=== PATIENT | female | born 1995 | race Caucasian/White ===

== ENCOUNTER 2017-09-25 17:29 | Emergency (ER) | payer OTHER ==
[2017-09-25 18:24] LABS: Urine Blood NEGATIVE (NEG); Urine Glucose NEGATIVE (NEG); Urine Protein NEGATIVE (NEG); Urine Specific Gravity >1.030 (1.005-1.030)
[2017-09-25 19:10] LABS: Absolute Lymphocytes (CBC) 2.8 K/uL (0.7-4.9); Absolute Monocytes 0.9 K/uL (0.1-1.3); Absolute Neutrophil 6.8 K/uL (1.8-8.0); Basophils % 0.6 % (0-1.3); Eosinophils % 1.1 % (0-4.4); Hematocrit 38.2 % (36.0-45.0); Lymphocytes % 26.3 % (15.3-44.8); MCH 30.6 pg (27.0-35.0); MCV 92.8 fL (80-100); MPV 8.2 fL (7.6-11.3); Monocytes % 8.3 % (3.3-12.3); RBC Red Blood Cell Count 4.11 M/uL (3.86-4.86)
[2017-09-25 19:16] LABS: Bicarbonate 26 mEq/L (21-31); Glucose Level 91 mg/dL (65-120); Lipase 24 U/L (22-51); Potassium 3.8 mEq/L (3.6-5.0); Sodium Level 136 mEq/L (135-145)
--- NOTE | 2017-09-25 19:16 | RAD REPORT ---
EXAM DESCRIPTION: US - Transvaginal Study Probe - 09/25/2017 7:05 pm CLINICAL HISTORY: Pelvic pain. COMPARISON: None. FINDINGS: The uterus is normal in size, shape and echotexture. The uterus measures 5.6 x 4.0 x 3.3 c m. The endometrial stripe measures 6 mm, normal. Both ovaries are normal in size, shape and echotexture. The right ovary measures 2.9 x 2.2 x 1 7 cm. The left ovary measures 4.3 x 3.8 x 2 cm. 3.2 x 2.8 cm left ovarian cyst. No adnexal masses. Normal Doppler blood flow was demonstrated to both ovaries. IMPRESSION: 3.2 cm left ovarian cyst, otherwise unremarkable study.
[2017-09-25 19:22] LABS: ALT/SGPT 12 IU/L (10-60); AST/SGOT 16 IU/L (10-42); Alkaline Phosphatase 46 IU/L (42-121); BUN Blood Urea Nitrogen 9 mg/dL (6-20); Bilirubin Direct < 0.1 mg/dL (0-0.2); Bilirubin Total 0.3 mg/dL (0.3-1.2)
[2017-09-25 21:02] LABS: Urine Bacteria <20 /HPF (<20); Urine Culture Reflex Order NOT NEEDED; Urine RBC <5 /HPF (NONE SEEN); Urine Yeast PRESENT (NONE SEEN)
[2017-09-25 21:03] LABS: Urine Mucus 1+ /HPF (NONE SEEN)
[2017-09-25] MEDS ORDERED: DICYCLOMINE HCL 10 MG CAP ONE (21:38)
--- NOTE | 2017-09-25 21:39 | ER ---
Nurse's Notes [facility] Name: Leena Austin Age: 22 yrs Sex: Female : 1995 Arrival Date: 09/25/2017 Time: 17:32 Bed 15 Private MD: Sanjiv Parker Diagnosis: Unspecified ovarian cysts-left;Candidiasis of vulva and vagina;Diarrhea, unspecified;Unspecified abdominal pain Presentation: 09/25 17:42 Presenting complaint: Patient states: " Last week I was dx w/ bacterial vaginosis and a ph yeast infection. I've been taking meds for that and I have been having really bad diarrhea and stomach pain. " Pt reports diarrhea x 3-4 days, lower abdominal pain and nausea, denies fever. Transition of care: patient was not received from another setting of care. Onset of symptoms was September 25, 2017. Risk Assessment: Do you want to hurt yourself or someone else? Patient reports no desire to harm self or others. Initial Sepsis Screen: Does the patient meet any 2 criteria? No. Patient's initial sepsis screen is negative. Does the patient have a suspected source of infection? No. Patient's initial sepsis screen is negative. Care prior to arrival: None. 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 - Social history:: Smoking status: Patient uses tobacco products, smokes one pack cigarettes per day. - Ebola Screening: : No symptoms or risks identified at this time. Screenin:51 Abuse screen: Denies threats or abuse. Denies injuries from another. Nutritional aj screening: No deficits noted. Tuberculosis screening: No symptoms or risk factors identified. Fall Risk None identified. Assessment: 18:51 General: Appears in no apparent distress. comfortable, Behavior is calm, cooperative, aj appropriate for age. Pain: Complains of pain in anus. Neuro: Level of Consciousness is awake, alert, obeys commands, Oriented to person, place, time, situation. Respiratory: Airway is patent Trachea midline Respiratory effort is even, unlabored, Respiratory pattern is regular, symmetrical. GI: Abdomen is flat, non-distended, Reports diarrhea, Rectal pain. Derm: Skin is intact, is healthy with good turgor, Skin is pink, warm \\T\\ dry. normal. 19:17 Reassessment: No changes from previously documented assessment. Patient and/or family cr4 updated on plan of care and expected duration. Pain level reassessed. Patient is alert, oriented x 3, equal unlabored respirations, skin warm/dry/pink. 19:30 GI: Bowel sounds present X 4 quads. Abd is soft and non tender X 4 quads. Reports cr4 diarrhea, Patient currently denies nausea, vomiting. 20:00 Reassessment: No changes from previously documented assessment. Patient and/or family cr4 updated on plan of care and expected duration. Pain level reassessed. Patient is alert, oriented x 3, equal unlabored respirations, skin warm/dry/pink. 20:30 Reassessment: Patient and/or family updated on plan of care and expected duration. Pain cr4 level reassessed. Patient is alert, oriented x 3, equal unlabored respirations, skin warm/dry/pink. Bear Stein, BULLET CASTING OPERATOR to see patient. . 21:00 Reassessment: No changes from previously documented assessment. Patient and/or family cr4 updated on plan of care and expected duration. Pain level reassessed. Patient is alert, oriented x 3, equal unlabored respirations, skin warm/dry/pink. Vital Signs: 17:45 BP 143 / 81; Pulse 98; Resp 18; Temp 98.0; Pulse Ox 100% on R/A; Weight 53.07 kg; ph Height 4 ft. 11 in. (149.86 cm); Pain 7/10; 19:18 BP 116 / 77; Pulse 85; Resp 16; Pulse Ox 100% ; cr4 20:00 BP 107 / 62; Pulse 72; Resp 16; Pulse Ox 98% ; Pain 3/10; cr4 21:45 BP 109 / 52; Pulse 70; Resp 16; Temp 97.7; Pulse Ox 98% ; Pain 3/10; cr4 17:45 Body Mass Index 23.63 (53.07 kg, 149.86 cm) ED Course: 17:32 Patient arrived in ED. mr 17:32 Sanjiv Parker MD is Private Physician. mr 17:45 Triage completed. ph 17:46 Arm band placed on. ph 17:52 Orly Lema, DAVID is Primary Nurse. aj 18:10 Marcelo Stanley NP is PHCP. pm1 18:10 Howard Valero MD is Attending Physician. pm1 18:51 Placed in gown. Bed in low position. Call light in reach. aj 18:51 Inserted saline lock: 20 gauge in right antecubital area, using aseptic technique. aj Blood collected. 19:05 Transvaginal Study (probe) In Process Unspecified. EDMS 19:05 Ultrasound completed. Patient tolerated well. cy 19:45 Assist provider with pelvic exam: Set up pelvic tray. Performed by Marcelo Stanley NP cr4 Specimens sent to lab. Patient tolerated well. 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 21:25 intact, bleeding controlled, No redness/swelling at site. cr4 21:38 Sanjiv Parker MD is Referral Physician. pm1 21:40 Tim Mesa MD is Referral Physician. pm1 Administered Medications: 21:39 Drug: Bentyl 20 mg Route: PO; cr4 21:51 Follow up: Response: No adverse reaction cr4 Outcome: 21:38 Discharge ordered by . pm1 21:50 Discharged to home ambulatory, with family. cr4 21:50 Condition: stable 21:50 Discharge instructions given to patient, Instructed on discharge instructions, follow up and referral plans. medication usage, Demonstrated understanding of instructions, follow-up care, medications, Prescriptions given X 1. 21:55 Patient left the ED. cr4 Signatures: Dispatcher [employer] EDMS Orly Lema, RN Lakeisha RodrigesizMaria A RN RN cr4 Marcie De La Cruz RN RN Marcelo Stanley NP BULLET CASTING OPERATOR pm1 Nate Maria
--- NOTE | 2017-09-25 21:39 | EDPHYS ---
Physician Documentation [facility] Name: Leena Austin Age: 22 yrs Sex: Female : 1995 Arrival Date: 09/25/2017 Time: 17:32 Bed 15 Private MD: Sanjiv Parker ED Physician Howard Valero HPI: 09/25 18:30 This 22 yrs old Female presents to ER via Ambulatory with complaints of pm1 Abdominal Pain, Diarrhea. 18:30 The patient presents with abdominal pain that is diffuse. Onset: The symptoms/episode pm1 began/occurred 1 week(s) ago. The symptoms do not radiate. Associated signs and symptoms: Pertinent positives: diarrhea, Pertinent negatives: nausea and vomiting, dysuria, fever. The symptoms are described as Burning to rectal area. Modifying factors: The symptoms are alleviated by nothing, the symptoms are aggravated by Sitting. The patient has not experienced similar symptoms in the past. The patient has been recently seen by a physician: Seen by Dr. Cunha 2 days ago and given diflucan and vaginal suppository for BV and yeast infection. Patient took 2 days worth of flagyl from clinic 1 week ago for same complaint of vaginal discharge and rectal pain. 18:30 Patient took Flagyl despite allergy to medications. Allergy is abdominal pain . 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 - Social history:: Smoking status: Patient uses tobacco products, smokes one pack cigarettes per day. - Ebola Screening: : No symptoms or risks identified at this time. ROS: 19:00 Constitutional: Negative for fever, chills, and weight loss, Eyes: Negative for injury, pm1 pain, redness, and discharge, ENT: Negative for injury, pain, and discharge, Neck: Negative for injury, pain, and swelling, Cardiovascular: Negative for chest pain, palpitations, and edema, Respiratory: Negative for shortness of breath, cough, wheezing, and pleuritic chest pain. 19:00 Back: Negative for injury and pain. 19:00 MS/Extremity: Negative for injury and deformity, Skin: Negative for injury, rash, and discoloration, Neuro: Negative for headache, weakness, numbness, tingling, and seizure. 19:00 Abdomen/GI: Positive for abdominal pain, diarrhea, rectal pain, Negative for nausea and vomiting, black/tarry stool, rectal bleeding. 19:00 : Positive for vaginal discharge, Negative for flank pain, burning with urination, vaginal bleeding, vaginal itching. Exam: 19:00 Constitutional: This is a well developed, well nourished patient who is awake, alert, pm1 and in no acute distress. Head/Face: Normocephalic, atraumatic. Eyes: Pupils equal round and reactive to light, extra-ocular motions intact. Lids and lashes normal. Conjunctiva and sclera are non-icteric and not injected. Cornea within normal limits. Periorbital areas with no swelling, redness, or edema. ENT: Nares patent. No nasal discharge, no septal abnormalities noted. Tympanic membranes are normal and external auditory canals are clear. Oropharynx with no redness, swelling, or masses, exudates, or evidence of obstruction, uvula midline. Mucous membranes moist. Neck: Trachea midline, no thyromegaly or masses palpated, and no cervical lymphadenopathy. Supple, full range of motion without nuchal rigidity, or vertebral point tenderness. No Meningismus. Chest/axilla: Normal chest wall appearance and motion. Nontender with no deformity. No lesions are appreciated. Cardiovascular: Regular rate and rhythm with a normal S1 and S2. No gallops, murmurs, or rubs. Normal PMI, no JVD. No pulse deficits. Respiratory: Lungs have equal breath sounds bilaterally, clear to auscultation and percussion. No rales, rhonchi or wheezes noted. No increased work of breathing, no retractions or nasal flaring. 19:00 Back: No spinal tenderness. No costovertebral tenderness. Full range of motion. Skin: Warm, dry with normal turgor. Normal color with no rashes, no lesions, and no evidence of cellulitis. MS/ Extremity: Pulses equal, no cyanosis. Neurovascular intact. Full, normal range of motion. Neuro: Awake and alert, GCS 15, oriented to person, place, time, and situation. Cranial nerves II-XII grossly intact. Motor strength 5/5 in all extremities. Sensory grossly intact. Cerebellar exam normal. Normal gait. 19:00 Abdomen/GI: Inspection: abdomen appears normal, Bowel sounds: normal, Palpation: abdomen is soft and non-tender. 21:00 : Pelvic Exam: External exam: is normal, Speculum exam: no bleeding is noted, pm1 bimanual exam reveals normal findings, no cervical motion tenderness, no adnexa tenderness or masses bilaterally, discharge, white, Maria A RN. 21:00 Abdomen/GI: Rectal exam: rectal tone normal, Stool: normal, guaiac negative, pm1 hemorrhoid(s), are not appreciated, mass, is not appreciated, tenderness, is not appreciated, Maria A. Vital Signs: 17:45 BP 143 / 81; Pulse 98; Resp 18; Temp 98.0; Pulse Ox 100% on R/A; Weight 53.07 kg; ph Height 4 ft. 11 in. (149.86 cm); Pain 7/10; 19:18 BP 116 / 77; Pulse 85; Resp 16; Pulse Ox 100% ; cr4 20:00 BP 107 / 62; Pulse 72; Resp 16; Pulse Ox 98% ; Pain 3/10; cr4 21:45 BP 109 / 52; Pulse 70; Resp 16; Temp 97.7; Pulse Ox 98% ; Pain 3/10; cr4 17:45 Body Mass Index 23.63 (53.07 kg, 149.86 cm) ph MDM: 18:13 Patient medically screened. dianna 21:37 Data reviewed: vital signs. Data interpreted: Pulse oximetry: on room air is 100 %. pm1 Interpretation: normal. Counseling: I had a detailed discussion with the patient and/or guardian regarding: the historical points, exam findings, and any diagnostic results supporting the discharge/admit diagnosis, lab results, radiology results, the need for outpatient follow up, to return to the emergency department if symptoms worsen or persist or if there are any questions or concerns that arise at home. 21:42 ED course: Patient has Diflucan single dose at home from Dr. Cunha. She was pm1 instructed to take the medication if it did not resolve. 09/25 18:18 Order name: Urine Dipstick--Ancillary (enter results); Complete Time: 18:30 ag 09/25 18:18 Order name: Urine --Ancillary (enter results); Complete Time: 18:30 ag 09/25 18:34 Order name: Basic Metabolic Panel; Complete Time: 19:26 pm1 09/25 18:34 Order name: CBC with Diff; Complete Time: 19:26 pm1 09/25 18:34 Order name: Hepatic Function; Complete Time: 19:26 pm1 09/25 18:34 Order name: Lipase; Complete Time: 19:26 pm1 09/25 18:34 Order name: Urine Microscopic Only; Complete Time: 21:10 pm1 09/25 18:34 Order name: IV Saline Lock; Complete Time: 18:53 pm1 09/25 18:34 Order name: Labs collected and sent; Complete Time: 18:53 pm1 09/25 18:34 Order name: Transvaginal Study (probe); Complete Time: 19:26 pm1 09/25 19:48 Order name: GC (GONORR/CHLAMYDIA) Probe pm1 09/25 19:48 Order name: Wet Prep; Complete Time: 21:10 pm1 Administered Medications: 21:39 Drug: Bentyl 20 mg Route: PO; cr4 21:51 Follow up: Response: No adverse reaction cr4 Disposition: 09/25/17 21:38 Discharged to Home. Impression: Unspecified abdominal pain, Unspecified ovarian cysts - left, Candidiasis of vulva and vagina, Diarrhea, unspecified. - Condition is Stable. - Discharge Instructions: Abdominal Pain, Adult, Food Choices to Help Relieve Diarrhea, Adult, Diarrhea, Ovarian Cyst, Vaginitis, Monilial. - Prescriptions for Bentyl 20 mg Oral Tablet - take 1 tablet by ORAL route every 6 hours As needed; 20 tablet. - Medication Reconciliation Form, Thank You Letter form. - Follow up: Sanjiv Parker MD; When: 2 - 3 days; Reason: Recheck today's complaints, Continuance of care, Re-evaluation by your physician. Follow up: Emergency Department; When: As needed; Reason: Worsening of condition. Follow up: Tim Mesa MD; When: 2 - 3 days; Reason: Recheck today's complaints, Continuance of care, Re-evaluation by your physician. - Problem is new. - Symptoms have improved. Addendum: 09/29/2017 09:12 Co-signature as Attending Physician, Howard Valero MD I agree with the assessment and c guevara plan of care. Signatures: Dispatcher [employer] EDMS Orly Lema RN RN aj Anderson, Corey, MD MD cha Ruiz, Claudia RN RN cr4 Marcie De La Cruz RN RN Marcelo Stanley, SHAG TRUCK DRIVER SHAG TRUCK DRIVER pm1 Corrections: (The following items were deleted from the chart) 09/25 21:38 21:38 09/25/2017 21:38 Discharged to Home. Impression: Unspecified ovarian cysts - pm1 left; Candidiasis of vulva and vagina; Diarrhea, unspecified. Condition is Stable. Forms are Medication Reconciliation Form, Thank You Letter, Antibiotic Education, Prescription Opioid Use. pm1 21:39 21:38 09/25/2017 21:38 Discharged to Home. Impression: Unspecified ovarian cysts - pm1 left; Candidiasis of vulva and vagina; Diarrhea, unspecified. Condition is Stable. Forms are Medication Reconciliation Form, Thank You Letter, Antibiotic Education, Prescription Opioid Use. Follow up: Sanjiv Parker; When: 2 - 3 days; Reason: Recheck today's complaints, Continuance of care, Re-evaluation by your physician. Follow up: Emergency Department; When: As needed; Reason: Worsening of condition. Problem is new. Symptoms have improved. pm1 21:40 21:39 09/25/2017 21:38 Discharged to Home. Impression: Unspecified abdominal pm1 painUnspecified ovarian cysts - left; Candidiasis of vulva and vagina; Diarrhea, unspecified. Condition is Stable. Forms are Medication Reconciliation Form, Thank You Letter, Antibiotic Education, Prescription Opioid Use. Follow up: Sanjiv Parker; When: 2 - 3 days; Reason: Recheck today's complaints, Continuance of care, Re-evaluation by your physician. Follow up: Emergency Department; When: As needed; Reason: Worsening of condition. Problem is new. Symptoms have improved. pm1 21:55 21:40 09/25/2017 21:38 Discharged to Home. Impression: Unspecified abdominal cr4 painUnspecified ovarian cysts - left; Candidiasis of vulva and vagina; Diarrhea, unspecified. Condition is Stable. Discharge Instructions: Abdominal Pain, Adult, Food Choices to Help Relieve Diarrhea, Adult, Diarrhea, Ovarian Cyst, Vaginitis, Monilial. Prescriptions for Bentyl 20 mg Oral Tablet - take 1 tablet by ORAL route every 6 hours As needed; 20 tablet. and Forms are Medication Reconciliation Form, Thank You Letter. Follow up: Sanjiv Pakrer; When: 2 - 3 days; Reason: Recheck today's complaints, Continuance of care, Re-evaluation by your physician. Follow up: Emergency Department; When: As needed; Reason: Worsening of condition. Follow up: Tim Mesa; When: 2 - 3 days; Reason: Recheck today's complaints, Continuance of care, Re-evaluation by your physician. Problem is new. Symptoms have improved. pm1
[2017-09-29 19:10] LABS: C.trachomatis RNA,TMA Not Detected (Not Detected)
== END 2017-09-25 21:55 | disposition home or self-care (01) ==
LOC: ER 17:29
DX: N83.202 Unspecified ovarian cyst, left side (principal); R19.7 Diarrhea, unspecified; B37.3 Candidiasis of vulva and vagina; F17.210 Nicotine dependence, cigarettes, uncomplicated; Z88.1 Allergy status to other antibiotic agents; Z88.3 Allergy status to other anti-infective agents; Z88.5 Allergy status to narcotic agent; Z88.6 Allergy status to analgesic agent; Z88.8 Allergy status to other drugs, medicaments and biological substances
CPT/HCPCS: 36415; 76830; 80048; 80076; 81003; 81015; 81025; 83690; 85025; 87210; 87490; 87590; 99284

== ENCOUNTER 2019-07-06 06:16 | Inpatient (IN) | payer OTHER, BC ==
[2019-07-06] MEDS ORDERED: BUTORPHANOL 1 MG/ML INJ IV PRN (06:22)
[2019-07-06] MEDS ORDERED: METHYLERGONOVINE 0.2MG/ML AMP IM PRN ×2 (06:22→15:13)
[2019-07-06] MEDS ORDERED: CARBOPROST TROME 250 MCG/ML IM PRN ×2 (06:22→15:13)
[2019-07-06] MEDS ORDERED: PROMETHAZINE INJ 25 MG/ML AMP IV PRN (06:22)
[2019-07-06] MEDS ORDERED: Ringers Lactate 1,000 ML IV PRN (06:22)
[2019-07-06] MEDS ORDERED: Ringers Lactate 1,000 ML IV SCH (07:00)
[2019-07-06] MEDS ORDERED: OXYTOCIN/LR 20 UNIT/1,000 ML BAG IV SCH ×2 (07:00→15:00)
--- NOTE | 2019-07-06 07:36 | P.PN ---
Date of Service: 07/06/19 CX 1+cm, 75% effaced, vtx minus one to minus two station, FSE applied, clear fluid noted. Will start pitocin.
[2019-07-06 07:57] VITALS: BMI 33.3
[2019-07-06 08:02] LABS: Urine Appearance CLEAR; Urine Bilirubin NEGATIVE (NEG); Urine Blood NEGATIVE (NEG); Urine Color YELLOW; Urine Glucose NEGATIVE (NEG); Urine Protein NEGATIVE (NEG); Urine Specific Gravity 1.015 (1.005-1.030); Urine Urobilinogen 0.2 mg/dL (0.2-1.0); Urine pH 6.5 (5.0-7.0)
[2019-07-06 08:03] LABS: Absolute Lymphocytes (CBC) 3.1 K/uL (0.7-4.9); Basophils % 0.8 % (0-1.3); Hematocrit 36.7 % (36.0-45.0); Lymphocytes % 23.7 % (15.3-44.8); MPV 8.4 fL (7.6-11.3); RBC Red Blood Cell Count 4.19 M/uL (3.86-4.86)
--- NOTE | 2019-07-06 08:30 | PREOPHP ---
Date of Admission: 07/06/2019 History Of Present Illness: Ms. Galvez is a 24-year-old female, 3, para 0-0-2-0, now at 39-plus weeks' gestation. She will be admitted for induction of labor secondary to t erm with favorable cervix. She has been followed by me during this without signi ficant complications other than prior spontaneous AB x2, treated with Prometrium during the early por tion of the . She has done well. Past Medical History: Please see record. Family History: Please see record. Review of Systems: She reports no recent cough, cold, fever, or chills. No recent nausea or vomiting. No breast knots or lumps. has been active. She denies any vaginal bleeding or spotting. No bladder issues. She has had some loose bowel movements recently. Physical Examination: General: A short-statured female, no apparent distress. Neck: Supple without adenopathy or thyromegaly. Lungs: Clear. Cardiac: Regular rate and rhythm without murmurs. Breasts: Not examined. Abdomen: Estimated weight of 6-plus to 7-plus pounds. Pelvic: Cervix noted to be 1 cm, 75% effaced, vertex at between -1 and -2 station. Cervix soft ante rior. Extremities: Trace lower extremity edema. Impression: Term , favorable cervix. Plan: Patient will be admitted for induction of labor. Risks and benefits are discussed. She has s igned operative permit in my presence. CIERRA/ANTWAN Voice ID: [id number]
[2019-07-06] MEDS ORDERED: FENTANYL CITR 100 MCG/2 ML IV ONE (08:44)
[2019-07-06] MEDS ORDERED: BUPIVACAINE 0.25% PF 30 ML VIAL IV ONE (08:45)
[2019-07-06] MEDS ORDERED: FENTANYL/BUPIVACAINE/NS/PF 200 MCG/100 ML BAG EP ONE (08:45)
[2019-07-06 08:57] LABS: Urine Bacteria <20 /HPF (<20); Urine Culture Reflex Order NOT NEEDED; Urine RBC <5 /HPF (NONE SEEN)
[2019-07-06] MEDS ORDERED: METHYLERGONOVINE 0.2MG/ML AMP IM ONE (14:23)
[2019-07-06] MEDS ORDERED: CARBOPROST TROME 250 MCG/ML IM ONE (14:23)
[2019-07-06] MEDS ORDERED: LIDOCAINE 1% 20 ML MDV ONE (14:23)
[2019-07-06] MEDS ORDERED: METHYLERGONOVINE 0.2 MG TAB PO PRN (15:13)
[2019-07-06] MEDS ORDERED: ONDANSETRON 4 MG (ODT) TAB PO PRN (15:13)
--- NOTE | 2019-07-06 15:18 | P.BOP ---
Preoperative diagnosis: 39 wk Postoperative diagnosis: SCVD viable female infant Primary procedure: SCVD Secondary procedure: Right midline episiotomy with repair Estimated blood loss: 250ml Anesthesia: epidural Complications: None Transferred to: Other ([id number]) Condition: Good
[2019-07-06] MEDS: TRAMADOL HCL 50 MG TAB PO PRN ×2 (16:34→22:30)
[2019-07-06] MEDS: IBUPROFEN 600 MG TAB PO PRN (19:15)
[2019-07-07 00:20] LABS: RPR (Rapid Plasma Reagin) NON-REACT (NON-REACT)
[2019-07-07] MEDS: IBUPROFEN 600 MG TAB PO PRN ×2 (01:30→13:21)
[2019-07-07] MEDS: TRAMADOL HCL 50 MG TAB PO PRN ×2 (04:35→10:48)
--- NOTE | 2019-07-07 07:38 | DN ---
Surgeon: Tim Mesa MD Leena is a 24-year-old female, 3, para 0-0-2-0 at 39+ weeks gestation, adm itted for elective induction of labor. After rupture of membranes she had a first stage of labor of 6 hours and 45 minutes, second stage of labor at 42 minutes. She delivered by spontaneous controlled vaginal delivery over a right midline episiotomy with epidural anesthesia a 6 pound 8 ounce female i nfant. was delivered vertex OA. After delayed cord clamping, the was placed on mother 's upper abdomen. Cord blood was obtained. The placenta was spontaneously expelled. Intrauterine e xamination revealed no retained placental fragments. Right midline episiotomy was repaired in usual fashion with 3-0 Vicryl suture. Apgars were 9 and 9. Quantitative blood loss was 386 mL. Patient t olerated all procedures well. CIERRA/ANTWAN Voice ID: [id number] Report ID: [id number]
--- NOTE | 2019-07-07 07:41 | DS ---
Hospital Discharge Diagnosis: 39+ weeks , delivered. Complications: None. Procedures: Artificial rupture of membranes, Pitocin induction of labor, placement of epidural cheryl ter, right midline episiotomy with repair, spontaneous controlled vaginal delivery of viable female i nfant. Hospital Course: The patient is a 24-year-old female, 3, para 0-0-2-0 at 3 9+ weeks gestation, admitted for induction of labor. She delivered with epidural anesthesia 6 pound 8 ounce female , 9 and 9. She was dismissed on the first day, ambulatory, on a select diet with routine post vaginal delivery activity restrictions, to be seen back in my office in 1 week. Lab included an admission hemoglobin and hematocrit of 12.0 and 36.7, dismissal hematocri t of 32.3. She had a negative urinalysis, nonreactive RPR. She has Rh positive blood type. She was dismissed, to continue taking her iron and vitamins with prescription for tramadol 50 mg #1 0. MPG/MODL Voice ID: [id number] Report ID: [id number]
[2019-07-07] MEDS ORDERED: OXYCODONE HCL 5 MG TAB PO ONE (15:00)
[2019-07-07 16:15] VITALS: BP 116/68; TEMP 97.1
[2019-07-07] MEDS ORDERED: Ringers Lactate 1,000 ML IV ONE (17:31)
[2019-07-10 22:03] LABS: HBsAG Nonreactive (Nonreactive)
== END 2019-07-07 17:20 | disposition home or self-care (01) | DRG 807 ==
LOC: 2ND-WC 06:16
PROVIDERS: ADMIT Specialist; ATTEND Specialist
PROC: 10E0XZZ Delivery of Products of Conception, External Approach (ICD-10-PCS; principal; 2019-07-06)
PROC: 10907ZC Drainage of Amniotic Fluid, Therapeutic from Products of Conception, Via Natural or Artificial Opening (ICD-10-PCS; 2019-07-06)
PROC: 0W8NXZZ Division of Female Perineum, External Approach (ICD-10-PCS; 2019-07-06)
DX: O80 Encounter for full-term uncomplicated delivery (principal); Z37.0 Single live birth; Z3A.39 39 weeks gestation of pregnancy
CPT/HCPCS: 36415; 81001; 85014; 85025; 86592; 86901; 87340; J2210; J2590; J3010; J7120

== ENCOUNTER 2020-08-03 10:59 | Emergency (ER) | payer BC ==
[2020-08-03] MEDS ORDERED: ACETAMINOPHEN 500 MG TAB ONE (12:24)
[2020-08-03] MEDS ORDERED: NA CHLORIDE 0.9% 1,000 ML ONE (12:25)
--- NOTE | 2020-08-03 12:40 | RAD REPORT ---
EXAM DESCRIPTION: [facility] Single View08/03/2020 12:26 pm CLINICAL HISTORY: Chest pain COMPARISON: 2016 FINDINGS: The lungs appear clear of acute infiltrate. The heart is normal size IMPRESSION: No acute abnormalities displayed
[2020-08-03 13:33] LABS: Urine Blood Negative (Negative); Urine Glucose Negative (Negative); Urine Protein Negative (Negative); Urine pH 5.5 (5.0-7.0)
[2020-08-03 13:48] LABS: Thyroid Stimulating Hormone 1.89 uIU/mL (0.360-3.740)
[2020-08-03 14:07] LABS: SARS-COV-2 RT PCR NEGATIVE (NEGATIVE)
--- NOTE | 2020-08-03 14:22 | ER ---
Nurse's Notes [facility] Name: Leena Galvez Age: 25 yrs Sex: Female : 1995 Arrival Date: 08/03/2020 Time: 11:04 Bed 15 Private MD: Diagnosis: Fever, unspecified Presentation: 08/03 11:20 Chief complaint: Patient states: CPx 5 days, SOBx 2 days. Heart racing and chest bw tenderness. Was seen at PCP yesterday. Coronavirus screen: Client presents with at least one sign or symptom that may indicate coronavirus-19. Standard/surgical mask placed on the client. Ebola Screen: No symptoms or risks identified at this time. Initial Sepsis Screen: Does the patient meet any 2 criteria? No. Patient's initial sepsis screen is negative. Does the patient have a suspected source of infection? No. Patient's initial sepsis screen is negative. Risk Assessment: Do you want to hurt yourself or someone else? Patient reports no desire to harm self or others. Onset of symptoms was July 30, 2020. 11:20 Method Of Arrival: Ambulatory bw 11:20 Acuity: CIRO 3 bw Triage Assessment: 11:41 General: Appears in no apparent distress. uncomfortable, Behavior is calm, cooperative, bw appropriate for age. Pain: Complains of pain in Left chest, breast, axilla. Neuro: No deficits noted. Cardiovascular: Rhythm is sinus arrythmia Chest pain. Respiratory: Reports shortness of breath. GI: No deficits noted. : No deficits noted. Derm: No deficits noted. Musculoskeletal: No deficits noted. BI TESTER: 11:41 1, Full Term 1, Premature 0, 0, Living 1, LMP N/A - Irregular menses bw Historical: - Allergies: 11:41 Flagyl; bw 11:41 arithromycin; bw 11:41 Biaxin; bw 11:41 Histinex; bw 11:41 Percocet; bw 11:41 Clarithromycin; bw 11:41 Zithromax; bw 11:41 Oxycodone; bw 11:41 Ondansetron HCl; bw 11:41 Reglan; bw 11:41 Zoloft; bw 11:41 Prozac; bw 11:41 Aspirin; bw - Immunization history:: Adult Immunizations up to date. - Social history:: Smoking status: Patient denies any tobacco usage or history of. Patient/guardian denies using alcohol, street drugs, The patient lives with family. - Family history:: not pertinent. Screenin:43 Abuse screen: Denies threats or abuse. Nutritional screening: No deficits noted. bw Tuberculosis screening: No symptoms or risk factors identified. Fall Risk None identified. Assessment: 11:43 Reassessment: See triage assessment. Pain: Pain radiates to axilla Pain began 2-3 days bw ago. Neuro: No deficits noted. Cardiovascular: No deficits noted. Respiratory: No deficits noted. GI: No deficits noted. : No deficits noted. EENT: No signs and/or symptoms were reported regarding the EENT system. 13:14 Reassessment: No changes from previously documented assessment. bw 14:02 Reassessment: Patient appears in no apparent distress at this time. Patient and/or bw family updated on plan of care and expected duration. Pain level reassessed. Patient is alert, oriented x 3, equal unlabored respirations, skin warm/dry/pink. Vital Signs: 11:20 BP 149 / 99; Pulse 127; Resp 20; Temp 100.5; Pulse Ox 97% on R/A; Weight 77.11 kg; bw Height 5 ft. 5 in. (165.10 cm); Pain 6/10; 13:14 BP 142 / 98; Pulse 84; Resp 18; Pulse Ox 97% on R/A; bw 11:20 Body Mass Index 28.29 (77.11 kg, 165.10 cm) bw ED Course: 11:04 Patient arrived in ED. as 11:16 Nona Butler, DAVID is Primary Nurse. bw 11:23 Flavio Roman MD is Attending Physician. ma2 11:39 Triage completed. bw 11:41 Arm band placed on right wrist. bw 11:43 Patient has correct armband on for positive identification. library monitor on. Pulse bw ox on. NIBP on. 11:43 No provider procedures requiring assistance completed. Patient maintains SpO2 bw saturation greater than 95% on room air. 12:26 Chest Single View XRAY In Process Unspecified. EDMS 13:17 T4 Free Sent. bw 13:17 TSH Sent. bw 13:17 Strep Sent. bw 13:18 Influenza Screen (a \\T\\ B) Sent. bw 13:18 COVID-19 : Document "Date of Symptom Onset" if Symptomatic. Sent. bw 15:00 Inserted saline lock: 20 gauge in right antecubital area, using aseptic technique. bw 15:00 IV discontinued, intact, bleeding controlled, No redness/swelling at site. Pressure bw dressing applied. Administered Medications: 13:17 Drug: NS 0.9% 1000 ml Route: IV; Rate: 1 bolus; Site: right antecubital; bw 15:01 Follow up: Response: No adverse reaction; IV Status: Completed infusion bw 13:18 Drug: Acetaminophen 15 mg/kg Route: PO; bw 15:01 Follow up: Response: No adverse reaction bw Outcome: 14:21 Discharge ordered by . mela 15:00 Discharged to home ambulatory. bw 15:00 Condition: good 15:00 Discharge instructions given to patient. 15:03 Patient left the ED. Signatures: Dispatcher [employer] Марина Alexandra Mohammad, MD MD ma2 Nona Butler RN RN bw
--- NOTE | 2020-08-03 14:22 | EDPHYS ---
Physician Documentation [facility] Name: Leena Galvez Age: 25 yrs Sex: Female : 1995 Arrival Date: 08/03/2020 Time: 11:04 Bed 15 Private MD: ED Physician Flavio Roman HPI: 08/03 12:04 This 25 yrs old Female presents to ER via Ambulatory with complaints of Arm ma2 Pain, Chest Pain, Fever. 12:04 The complaints affect the left axilla. Onset: The symptoms/episode began/occurred ma2 gradually, 5 day(s) ago. Associated signs and symptoms: Pertinent negatives: erythema, nausea, pain, swelling, vomiting. Severity of symptoms: At their worst the symptoms were very mild, in the emergency department the symptoms are unchanged. The patient has not experienced similar symptoms in the past. patient has fever and weakness for few days she also has left axilla pain and left breast pain . 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 - Social history:: Smoking status: Patient denies any tobacco usage or history of. Patient/guardian denies using alcohol, street drugs, The patient lives with family. - Family history:: not pertinent. ROS: 12:04 Constitutional: Negative for fever, chills, and weight loss, Eyes: Negative for injury, ma2 pain, redness, and discharge. 12:04 All other systems are negative. Exam: 12:04 Constitutional: This is a well developed, well nourished patient who is awake, alert, ma2 and in no acute distress. Head/Face: Normocephalic, atraumatic. Eyes: Pupils equal round and reactive to light, extra-ocular motions intact. Lids and lashes normal. Conjunctiva and sclera are non-icteric and not injected. Cornea within normal limits. Periorbital areas with no swelling, redness, or edema. ENT: Nares patent. No nasal discharge, no septal abnormalities noted. Tympanic membranes are normal and external auditory canals are clear. Oropharynx with no redness, swelling, or masses, exudates, or evidence of obstruction, uvula midline. Mucous membranes moist. Neck: Trachea midline, no thyromegaly or masses palpated, and no cervical lymphadenopathy. Supple, full range of motion without nuchal rigidity, or vertebral point tenderness. No Meningismus. Chest/axilla: breast exam is unremarkable and left axillary exam is also wnl. Normal chest wall appearance and motion. Nontender with no deformity. No lesions are appreciated. Cardiovascular: Regular rate and rhythm with a normal S1 and S2. No gallops, murmurs, or rubs. Normal PMI, no JVD. No pulse deficits. Respiratory: Lungs have equal breath sounds bilaterally, clear to auscultation and percussion. No rales, rhonchi or wheezes noted. No increased work of breathing, no retractions or nasal flaring. Abdomen/GI: Soft, non-tender, with normal bowel sounds. No distension or tympany. No guarding or rebound. No evidence of tenderness throughout. Back: No spinal tenderness. No costovertebral tenderness. Full range of motion. Skin: Warm, dry with normal turgor. Normal color with no rashes, no lesions, and no evidence of cellulitis. MS/ Extremity: Pulses equal, no cyanosis. Neurovascular intact. Full, normal range of motion. Neuro: Awake and alert, GCS 15, oriented to person, place, time, and situation. Cranial nerves II-XII grossly intact. Motor strength 5/5 in all extremities. Sensory grossly intact. Cerebellar exam normal. Normal gait. Vital Signs: 11:20 BP 149 / 99; Pulse 127; Resp 20; Temp 100.5; Pulse Ox 97% on R/A; Weight 77.11 kg; bw Height 5 ft. 5 in. (165.10 cm); Pain 6/10; 13:14 BP 142 / 98; Pulse 84; Resp 18; Pulse Ox 97% on R/A; bw 11:20 Body Mass Index 28.29 (77.11 kg, 165.10 cm) bw MDM: 11:23 Patient medically screened. [facility] 12:04 Differential diagnosis: chest pain, flu vs covid, vs uti, she will get us breast in 1 [facility] week scheduled. 14:18 Data reviewed: vital signs, nurses notes. Counseling: I had a detailed discussion with [facility] the patient and/or guardian regarding: the historical points, exam findings, and any diagnostic results supporting the discharge/admit diagnosis, the presence of at least one elevated blood pressure reading (>120/80) during this emergency department visit, lab results, the need for outpatient follow up. Response to treatment: the patient's symptoms have markedly improved after treatment. 08/03 11:41 Order name: Strep [facility] 08/03 11:41 Order name: Influenza Screen (a \\T\\ B) [facility] 08/03 11:41 Order name: COVID-19 : Document "Date of Symptom Onset" if Symptomatic. [facility] 08/03 11:41 Order name: Group A Streptococcus Rapid Sc; Complete Time: 13:53 EDIL 08/03 12:04 Order name: TSH [facility] 08/03 12:04 Order name: T4 Free [facility] 08/03 12:04 Order name: Thyroid Stimulating Hormone; Complete Time: 13:53 EDMS 08/03 12:04 Order name: T4 Free; Complete Time: 13:53 EDMS 08/03 13:32 Order name: Urine Dipstick-Ancillary; Complete Time: 13:53 EDMS 08/03 13:35 Order name: Throat Culture [facility] 08/03 13:54 Order name: Urine --Ancillary (enter results) 08/03 14:07 Order name: COVID-19/FLU A+B; Complete Time: 14:20 EDMS 08/03 11:41 Order name: Chest Single View XRAY; Complete Time: 13:29 [facility] 08/03 11:57 Order name: Urine Test (obtain specimen); Complete Time: 13:41 bw 08/03 11:57 Order name: Urine Dipstick-Ancillary (obtain specimen); Complete Time: 13:41 bw Administered Medications: 13:17 Drug: NS 0.9% 1000 ml Route: IV; Rate: 1 bolus; Site: right antecubital; bw 15:01 Follow up: Response: No adverse reaction; IV Status: Completed infusion bw 13:18 Drug: Acetaminophen 15 mg/kg Route: PO; bw 15:01 Follow up: Response: No adverse reaction bw Disposition: 08/03/20 14:21 Discharged to Home. Impression: Fever, unspecified. - Condition is Stable. - Discharge Instructions: Fever, Adult. - Prescriptions for Diclofenac Sodium 75 mg Oral Tablet Sustained Release - take 1 tablet by ORAL route 2 times per day; 30 tablet. - Medication Reconciliation Form, Thank You Letter, Antibiotic Education, Prescription Opioid Use form. - Follow up: Private Physician; When: Tomorrow; Reason: If symptoms return, Continuance of care. Signatures: Dispatcher [employer] EDMS Flavio Roman MD MD ma2 Nona Butler RN RN Corrections: (The following items were deleted from the chart) 13:10 11:42 Influenza Screen (A ordered. EDMS EDMS 13:10 11:42 CORONAVIRUS ordered. EDIL EDMS 15:03 14:21 08/03/2020 14:21 Discharged to Home. Impression: Fever, unspecified. Condition is bw Stable. Forms are Medication Reconciliation Form, Thank You Letter, Antibiotic Education, Prescription Opioid Use. Follow up: Private Physician; When: Tomorrow; Reason: If symptoms return, Continuance of care. mela
[2020-08-04 03:35] VITALS: TEMP 100.5; O2SAT 97
[2020-08-04 03:36] VITALS: BP 142/98
--- NOTE | 2020-08-06 08:59 | EKG ---
Test Date: 2020-08-03 Test Time: 11:27:24 Lockstitch Pocket Setter: ZARA MEASUREMENT RESULTS: Intervals: Rate: 72 ND: 112 QRSD: 80 QT: 382 QTc: 418 [place]: P: 41 ND: 112 QRS: 44 T: 42 INTERPRETIVE STATEMENTS: Normal sinus rhythm with sinus arrhythmia Possible Left atrial enlargement Borderline ECG No previous ECG available for comparison Electronically Signed On 08-06-20 08:55:35 CDT by Arsalan Wallace
== END 2020-08-03 15:03 | disposition home or self-care (01) ==
LOC: ER 10:59
DX: R50.9 Fever, unspecified (principal); Z20.822 Contact with and (suspected) exposure to COVID-19; Z88.1 Allergy status to other antibiotic agents; Z88.3 Allergy status to other anti-infective agents; Z88.5 Allergy status to narcotic agent; Z88.6 Allergy status to analgesic agent; Z88.8 Allergy status to other drugs, medicaments and biological substances
CPT/HCPCS: 96361; 87070; 36415; 81025; 87081; 84443; 81003; 84439; 0240U; 71045; 96360; 99285; J7030; 93005

== ENCOUNTER 2021-09-19 12:54 | Emergency (ER) | payer BC ==
--- OUTSIDE RECORDS SUMMARY | 2021-09-19 13:03 | XMS REPORT | Continuity of Care Document ---
:1995 Author Organization [facility] t Address [facility] Sumit Vargas [address] [place] [address] Care Team Providers Name Role Phone Keith Primary Care Physician Doctor Unassigned, Name Attending Clinician Unavailable Zachary GREEN Attending Clinician Payers Payer Name Policy Type Policy Number Effective Date Expiration Date S ource Problems Condition Condition Condition Status Onset Resolution Last Treating Co mments Source Name Details Category Date Date Treatment Clinician Date Need for Need for Disease Active 2020-05 Unive rs HPV HPV 1-10 [place] [facility] Other Other Disease Active 2020-05 [facility] specified specified 1-08 it[place] of hypothyroi hypothyro[place] dis[place] dism 00 [facility] Allergies, Adverse Reactions, Alerts Allergy Allergy Status Severity Reaction(s) Onset Inactive Treating Comm ents Source Name Type Date Date Clinician Azithrom Propensi Active Rash Univer s ycin ty to 28 ity of adverse 00:00: [place] reaction Medical s Branch Clarithr Propensi Active Rash Univer s omycin ty to 10-29 ity of adverse 00:00: [place] reaction [facility] s [facility] Erythrom Propensi Active Rash Univer s ycin ty to 10-29 ity of adverse 00:00: [place] reaction [facility] s [facility] Pseudoep Propensi Active Nausea Univer s hedrine- ty to and/or 10-29 ity of Guaifene adverse Vomiting 00:00: [place] sin reaction 00 Medical s Branch Oxycodon Propensi Active Other - See Chest U nivers e-Acetam ty to comments 6-28 pain ity of inophen adverse 00:00: [place] reaction 00 Medical s Branch Social History Social Habit Start Date Stop Date Quantity Comments Source History of tobacco Cigarette Smoker [facility] of use [place] [facility] History [facility] o f Alcohol Frequency [facility] edical Branch History [facility] University o f Alcohol Std Drinks [place] [facility] History [facility] o f Alcohol Binge [place] [facility] Cigarettes smoked 2021-03-11 2021-03-11 Univers ity of current (pack per 00:00:00 00:00:00 ) - Reported Branch Cigarette 2021-03-11 2021-03-11 University of pack-years 00:00:00 00:00:00 [facility] Tobacco use and 2021-03-11 2021-03-11 Never used Universit y of exposure 00:00:00 00:00:00 [facility] Alcohol Comment 2021-03-11 2021-03-11 socially Universit y of 00:00:00 00:00:00 [facility] Sex Assigned At [birth year] Universit y of 00:00:00 00:00:00 [facility] Smoking Status Start Date Stop Date Source Current every day smoker 2021-03-11 00:00:00 Uni versity of [facility] Medications Ordered Filled Start Stop Current Ordering Indication Dosage Frequency Signature Comments Components Source Medication Medication Date Date Medication? Clinician (SIG) Name Name Levothyroxi 2020-05 Yes Take by Un sin ne 50 mcg 1-08 mouth. ity of capsule 10:17: [place] [facility] Branch Levothyroxi 2020-05 Yes Take by Un sin ne 50 mcg 1-08 mouth. ity of capsule 10:17: [place] [facility] Levothyroxi 2020-05 Yes Take by Un sin ne 50 mcg 1-08 mouth. ity of capsule 10:17: [place] [facility] ibuprofen Yes 800mg Take 1 Unive rs 800 mg 6-28 tablet by ity of tablet 00:00: mouth [place] 00 every 8 Medical (eight) Branch hours as needed (PAIN). ibuprofen Yes 800mg Take 1 Unive rs 800 mg 6-28 tablet by ity of tablet 00:00: mouth [place] 00 every 8 Medical (eight) Branch hours as needed (PAIN). ibuprofen 2018-0 Yes 800mg Take 1 Unive rs 800 mg 6-28 tablet by ity of tablet 00:00: mouth [place] 00 every 8 Medical (eight) Branch hours as needed (PAIN). Immunizations Ordered Filled Immunization Date Status Comments Sour e Immunization Name Name [facility] 2021-03-11 Completed University 00:00:00 [facility] 2021-03-11 Completed University 00:00:00 [facility] 2021-03-11 Completed [facility] 00:00:00 [facility] Vital Signs Vital Name Observation Time Observation Value Comments Source Systolic blood 2021-03-13 20:32:00 115 mm[Hg] Univer sity of pressure [facility] Diastolic blood 2021-03-13 20:32:00 72 mm[Hg] Unive rsity [facility] Heart rate 2021-03-13 20:32:00 85 /min [facility] Body temperature 2021-03-13 20:32:00 36.5 [facility] Res[facility] rate 2021-03-13 20:32:00 18 /min [facility] Body height 2021-03-13 20:32:00 149.9 cm [facility] Body weight 2021-03-13 20:32:00 58.287 kg [facility] BMI 2021-03-13 20:32:00 25.95 kg/m2 [facility] Procedures Procedure Date / Time Performed Performing Clinician Sour e EXTERNAL PROVIDER 2021-06-12 06:01:00 [facility] Unassigned, [facility] EXTERNAL PROVIDER 2021-05-23 06:01:00 [facility] Unassigned, [facility] Name [facility] GARDASIL 9 (HPV 9V) 2021-03-11 17:56:27 Shannon Sharma [facility] VACCINE [facility] Encounters Start End Encounter Admission Attending Care Care Encounter Source Date/Time Date/Time Type Type Clinicians Facility Department ID 2021-06-12 2021-06-12 Orders Doctor ORTEGA [id number] Univers 00:00:00 00:00:00 Only Unassigned, JUSTIN [id number] ity of [facility] [id number] [place] as [id number] [place] [address] Branch 2021-05-23 2021-05-23 Orders Doctor SHANNON [id number] Univers 00:00:00 00:00:00 Only Unassigned, JUSTIN [id number] ity of [facility] [id number] [place] as [phone] [place] [address] Branch 2021-03-11 2021-03-11 Office Fish, Shannon LINDA [id number] Univers 09:49:46 11:17:23 Visit ROBER [id number] it [place] [id number] [facility] [id number] [facility] 134 Branch Results This patient has no known results.
[2021-09-19 14:09] LABS: Absolute Lymphocytes (CBC) 2.3 K/uL (0.7-4.9); Hematocrit 39.3 % (36.0-45.0); Lymphocytes % 24.7 % (15.3-44.8); MPV 7.4 fL (7.6-11.3); RBC Red Blood Cell Count 4.41 M/uL (3.86-4.86)
[2021-09-19 14:33] LABS: Bilirubin Total 0.4 mg/dL (0.2-1.0); Protein, Total 7.3 g/dL (6.4-8.2); Thyroid Stimulating Hormone 1.16 uIU/mL (0.360-3.740)
--- NOTE | 2021-09-19 15:06 | RAD REPORT ---
EXAM DESCRIPTION: CT - Soft Tissue Neck W/Contr CLINICAL HISTORY: r sided neck pain Right sided neck pain and swelling COMPARISON: Head C Spine Mpr Wo Con dated 08/25/2016; Thyroid Para Parotid Gland dated 06/11/[address] scans are performed using dose optimization technique as appropriate and may includ e automated exposure control or mA/KV adjustment according to patient size. FINDINGS: Nasopharyngeal tissues are normal in appearance. Fossa Rosenmller are normal. Parapharyngeal fat triangles are symmetric. Tongue base structures are normal. Epiglottis and aryepiglottic folds are normal. Piriform sinuses are well aerated. The vocal cords are normal in appearance. Salivary glands are normal in appearance. Normal size thyroid gland. Upper lung palma are clear. Included intracranial contents are unremarkable. IMPRESSION: Unremarkable examination.
--- NOTE | 2021-09-19 15:40 | ER ---
Nurse's Notes [facility] Name: Leena Galvez Age: 26 yrs Sex: Female : 1995 Arrival Date: 09/19/2021 Time: 12:58 Bed 13 Private MD: Diagnosis: Pain in throat Presentation: 09/19 13:08 Chief complaint: Patient states: C/O past two weeks I began having throat pressure, ld1 numb and tingly in jaw and nose area, "pressure behind my eyes.". Coronavirus screen: At this time, the client does not indicate any symptoms associated with coronavirus-19. Ebola Screen: No symptoms or risks identified at this time. Initial Sepsis Screen: Does the patient meet any 2 criteria? No. Patient's initial sepsis screen is negative. Does the patient have a suspected source of infection? No. Patient's initial sepsis screen is negative. Risk Assessment: Do you want to hurt yourself or someone else? Patient reports no desire to harm self or others. Onset of symptoms was September 19, 2021. 13:08 Method Of Arrival: Ambulatory ld1 13:08 Acuity: CIRO 3 ld1 Triage Assessment: 13:10 General: Appears in no apparent distress. comfortable, Behavior is calm, cooperative, ld1 appropriate for age. Pain: Complains of pain in face and neck Pain does not radiate. Pain currently is 7 out of 10 on a pain scale. Quality of pain is described as throbbing. EENT: Throat is clear. Neuro: Level of Consciousness is awake, alert, obeys commands, Oriented to person, place, time, situation. Respiratory: Airway is patent Respiratory effort is even, unlabored. 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 - Social history:: Smoking status: Patient reports the use of cigarette tobacco products, smokes one-half pack cigarettes per day, Patient uses alcohol, occasionally. Screenin:10 Abuse screen: Denies threats or abuse. Denies injuries from another. Nutritional bp screening: No deficits noted. Tuberculosis screening: No symptoms or risk factors identified. Fall Risk None identified. Assessment: 13:10 General: SEE TRIAGE NOTE. bp 14:37 Reassessment: No changes from previously documented assessment. Patient and/or family bp updated on plan of care and expected duration. Pain level reassessed. 15:55 Reassessment: PT D/C HOME AMBULATORY WITH FAMILY, DX WITH SORE THROAT. bp Vital Signs: 13:08 BP 123 / 86; Pulse 90; Resp 18; Temp 98.1(O); Pulse Ox 100% on R/A; Weight 58.97 kg; ld1 Height 4 ft. 11 in. (149.86 cm); Pain 6/10; 14:37 BP 94 / 60; Pulse 58; Resp 16; Pulse Ox 100% ; bp 15:55 BP 99 / 62; Pulse 62; Resp 18; Pulse Ox 100% ; bp 13:08 Body Mass Index 26.26 (58.97 kg, 149.86 cm) ld1 ED Course: 12:58 Patient arrived in ED. as 12:59 [facility] 12:59 Howard Valero MD is Attending Physician. [facility] 13:10 Triage completed. ld1 13:10 Arm band placed on left wrist. ld1 13:10 Patient has correct armband on for positive identification. Bed in low position. Call bp light in reach. Side rails up X2. Adult w/ patient. 13:36 Eusebio Johnson, RN is Primary Nurse. bp 14:00 Inserted saline lock: 20 gauge in right antecubital area, using aseptic technique. bp Blood collected. 14:55 CT Soft Tissue Neck W/contr In Process Unspecified. EDMS 15:37 Sanjiv Parker MD is Referral Physician. [facility] 15:55 No provider procedures requiring assistance completed. IV discontinued, intact, bp bleeding controlled, No redness/swelling at site. Pressure dressing applied. Administered Medications: No medications were administered Medication: 13:10 VIS not applicable for this client. bp Outcome: 15:39 Discharge ordered by . [email or web address] 15:55 Discharged to home ambulatory, with family. bp 15:55 Condition: stable 15:55 Discharge instructions given to patient, Instructed on discharge instructions, follow up and referral plans. Demonstrated understanding of instructions, follow-up care. 15:59 Patient left the ED. bp Signatures: Dispatcher [employer] EDMS Марина Galvez Brian, RN RN bp Mayi Muro, RN RN ld1 Iliana Nolan FNP FNP [facility]
--- NOTE | 2021-09-19 15:40 | EDPHYS ---
Physician Documentation [facility] Name: Leena Galvez Age: 26 yrs Sex: Female : 1995 Arrival Date: 09/19/2021 Time: 12:58 Bed 13 Private MD: GIULIANO Physician Howard Valero HPI: 09/19 13:20 This 26 yrs old Female presents to ER via Ambulatory with complaints of Neck Pain, jh7 >24Hrs Old. 13:20 The patient or guardian complains of pain, that is acute. The patient presents for jh7 right anterior neck pain starting on Thursday. The patient states that she has a history of hypothyroidism, and that her medication was switched from levothyroxine 75 mcg to 50mcg daily. Denies sore throat, fever, cough, or difficulty swallowing. States that the front of her neck is painful to the touch, and feels like pressure. States that she had a thyroid ultrasound in June that was normal. States that within the past 2 weeks she has gained 6 pounds, and is feeling more cold. States that her PCP is Dr. Parker. Reports that he told her to go to the ER for further eval.. 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 - Social history:: Smoking status: Patient reports the use of cigarette tobacco products, smokes one-half pack cigarettes per day, Patient uses alcohol, occasionally. ROS: 13:20 Constitutional: Negative for fever, chills, and weight loss, ENT: Negative for injury, jh7 pain, and discharge, Cardiovascular: Negative for chest pain, palpitations, and edema, Respiratory: Negative for shortness of breath, cough, wheezing, and pleuritic chest pain, Abdomen/GI: Negative for abdominal pain, nausea, vomiting, diarrhea, and constipation, Skin: Negative for injury, rash, and discoloration, Neuro: Negative for headache, weakness, numbness, tingling, and seizure. 13:20 Neck: Positive for stiffness, tenderness, of the neck, Negative for mass, pain with movement, swollen nodes, bony tenderness. 13:20 All other systems are negative. Exam: 13:20 Constitutional: This is a well developed, well nourished patient who is awake, alert, jh7 and in no acute distress. ENT: Nares patent. No nasal discharge, no septal abnormalities noted. Tympanic membranes are normal and external auditory canals are clear. Oropharynx with no redness, swelling, or masses, exudates, or evidence of obstruction, uvula midline. Mucous membranes moist. Cardiovascular: Regular rate and rhythm with a normal S1 and S2. No gallops, murmurs, or rubs. Normal PMI, no JVD. No pulse deficits. Respiratory: Lungs have equal breath sounds bilaterally, clear to auscultation and percussion. No rales, rhonchi or wheezes noted. No increased work of breathing, no retractions or nasal flaring. Abdomen/GI: Soft, non-tender, with normal bowel sounds. No distension or tympany. No guarding or rebound. No evidence of tenderness throughout. Skin: Warm, dry with normal turgor. Normal color with no rashes, no lesions, and no evidence of cellulitis. Neuro: Awake and alert, GCS 15, oriented to person, place, time, and situation. Motor strength 5/5 in all extremities. Sensory grossly intact. Cerebellar exam normal. Normal gait. 13:20 Neck: External neck: tenderness, that is mild, of the thyroid cartilage and right sternocleidomastoid, Thyroid: appears normal, Trachea: is midline with no obvious abnormalities, ROM/movement: is normal, is supple, Lymph nodes: no appreciated lymphadenopathy. Vital Signs: 13:08 BP 123 / 86; Pulse 90; Resp 18; Temp 98.1(O); Pulse Ox 100% on R/A; Weight 58.97 kg; ld1 Height 4 ft. 11 in. (149.86 cm); Pain 6/10; 14:37 BP 94 / 60; Pulse 58; Resp 16; Pulse Ox 100% ; bp 15:55 BP 99 / 62; Pulse 62; Resp 18; Pulse Ox 100% ; bp 13:08 Body Mass Index 26.26 (58.97 kg, 149.86 cm) ld1 MDM: 13:31 Patient medically screened. 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 Data reviewed: vital signs, nurses [facility] notes, lab test result(s), radiologic studies, CT scan. Data interpreted: Pulse oximetry: is 100 %. Interpretation: normal. Counseling: I had a detailed discussion with the patient and/or guardian regarding: the historical points, exam findings, and any diagnostic results supporting the discharge/admit diagnosis, the need for outpatient follow up, Endocrinology. ED course: The patient remained hemodynamically stable throughout the ER visit. Her lab work and CT were unremarkable. Exam and diagnostics not consistent with IN FLIGHT REFUELING OPERATOR or RPA. No dysphagia present. Advised the patient to follow-up with Dr. Parker, and/or endocrinology. Informed the patient that if her symptoms worsen, or any new concerning symptoms develop, she was to return to the ER for further care. The patient understood the plan of care.. 09/19 13:49 Order name: CMP; Complete Time: 14:[address] [facility] 09/19 13:49 Order name: CBC with Diff; Complete Time: 14:[address] [facility] 09/19 13:49 Order name: TSH; Complete Time: 14:[address] [facility] 09/19 13:49 Order name: CT Soft Tissue Neck W/contr; Complete Time: 15:[address] [facility] 09/19 13:57 Order name: Magnesium; Complete Time: 14:[address] [facility] Administered Medications: No medications were administered Disposition Summary: 09/19/21 15:39 Discharge Ordered Location: Home [facility] Problem: new [facility] Symptoms: are unchanged [facility] Condition: Stable [facility] Diagnosis - Pain in throat [facility] Followup: [facility] - With: Sanjiv Parker MD - When: 2 - 3 days - Reason: Recheck today's complaints Discharge Instructions: - Discharge Summary Sheet [facility] - Hypothyroidism [facility] - Sore Throat [facility] Forms: - Medication Reconciliation Form 7 - Thank You Letter 7 Signatures: Dispatcher [employer] Howard Garsia MD MD cha Dibbern, Lauren, RN RN ld1 Iliana Nolan FNP FNP 7
[2021-09-19 16:46] VITALS: TEMP 98.1; O2SAT 100
[2021-09-19 16:50] VITALS: BP 99/62
[2021-09-19] MEDS ORDERED: NA CHLORIDE 0.9% 500 ML ONE (17:53)
== END 2021-09-19 15:59 | disposition home or self-care (01) ==
LOC: ER 12:54
DX: R07.0 Pain in throat (principal); E03.9 Hypothyroidism, unspecified; F17.210 Nicotine dependence, cigarettes, uncomplicated; Z88.1 Allergy status to other antibiotic agents; Z88.5 Allergy status to narcotic agent; Z88.6 Allergy status to analgesic agent; Z88.8 Allergy status to other drugs, medicaments and biological substances
CPT/HCPCS: 85025; 36415; 83735; 84443; 80053; 70491; 99283; Q9967; J7040

== ENCOUNTER 2021-10-04 11:57 | Emergency (ER) | payer BC ==
--- OUTSIDE RECORDS SUMMARY | 2021-10-04 12:00 | XMS REPORT | Continuity of Care Document ---
:1995 Author Organization [facility] t Address [facility] Sumit Vargas [address] [place] [address] Care Team Providers Name Role Phone Keith [...] Active Rash Univer s omycin ty to 6 ity of adverse 00:00: [place] reaction Medical [...] of tobacco Cigarette Smoker University of use [place] [facility] History [facility] o f Alcohol Frequency [facility] edical Branch History [facility] University o f Alcohol Std Drinks [place] [facility] History [facility] o f Alcohol Binge [place] [facility] Cigarettes smoked 2021-03-11 2021-03-11 Univers ity of current (pack per 00:00:00 00:00:00 ) - Reported Branch Cigarette 2021-03-11 2021-03-11 University of pack-years 00:00:00 00:00:00 [facility] Tobacco use and 2021-03-11 2021-03-11 Never used Universit y of exposure 00:00:00 00:00:00 [facility] Alcohol Comment 2021-03-11 2021-03-11 socially Universit y of 00:00:00 00:00:00 [facility] Sex Ass[birth year] At [birth year] Universit y of 00:00:00 00:00:00 [facility] Smoking Status Start Date Stop Date Source Current every day smoker 2021-03-11 00:00:00 Uni versity of [facility] Medications Ordered Filled Start Stop Current Ordering Indication Dosage Frequency Signature Comments Components Source Medication Medication Date Date Medication? Clinician (SIG) Name Name Levothyroxi 2020-05 Yes Take by Un sin ne 50 mcg 1-08 mouth. ity of capsule 10:17: [place] [facility] Levothyroxi 2020-05 Yes Take by Un sin ne 50 mcg 1-08 mouth. ity of capsule 10:17: [place] [facility] Levothyroxi 2020-05 Yes Take by Un sin ne 50 mcg 1-08 mouth. ity of capsule 10:17: [place] [facility] ibuprofen Yes 800mg Take 1 Unive rs 800 mg 6-28 tablet by ity of tablet 00:00: mouth [place] 00 every 8 Medical (eight) Branch hours [...] Status Comments Sour e Immunization Name Name [facility] 2021-03-11 Completed University 00:00:00 [place] [facility] 2021-03-11 Completed University 00:00:00 [facility] 2021-03-11 Completed [facility] 00:00:00 [facility] Vital Signs Vital Name Observation Time Observation Value Comments Source Systolic blood 2021-03-13 20:32:00 115 mm[Hg] Univer sity of pressure [facility] Diastolic blood 2021-03-13 20:32:00 72 mm[Hg] Unive rsity [facility] Heart rate 2021-03-13 20:32:00 85 /min [facility] Body temperature 2021-03-13 20:32:00 36.5 [facility] 2021-03-13 20:32:00 18 /min [facility] Body height 2021-03-13 20:32:00 149.9 cm [facility] Body weight 2021-03-13 20:32:00 58.287 kg [facility] BMI 2021-03-13 20:32:00 25.95 kg/m2 [facility] Procedures Procedure Date / Time Performed Performing Clinician Sour e EXTERNAL PROVIDER 2021-06-12 06:01:00 [facility] EXTERNAL PROVIDER 2021-05-23 06:01:00 [facility] GARDASIL 9 (HPV 9V) 2021-03-11 17:56:27 Shannon Sharma [facility] VACCINE [facility] Encounters Start End Encounter Admission Attending Care Care Encounter Source Date/Time Date/Time Type Type Clinicians Facility Department ID 2021-06-12 2021-06-12 Orders Doctor ORTEGA [id number] Univers 00:00:00 00:00:00 Only Unassigned, JUSTIN [id number] ity of [facility] [id number] [place] as [id number] [place] [address] Branch 2021-05-23 2021-05-23 Orders Doctor SHANNON [id number] Univers 00:00:00 00:00:00 Only Unassigned, JUSTIN [id number] ity of [facility] [id number] [place] [id number] [place] [address] Branch 2021-03-11 2021-03-11 Office Fish, Shannon LINDA [id number] Univers 09:49:46 11:17:23 Visit ROBER [id number] it y of [facility] [id number] [facility] [id number] [facility] 134 Branch Results This patient has no known results.
[2021-10-04] MEDS ORDERED: LIDOCAINE 1% W/EPI 1:100,000 MDV 20 ML VIAL ONE (12:36)
[2021-10-04] MEDS ORDERED: TETANUS & DIPHTHERIA TOX,ADULT 0.5 ML VIAL ONE (12:36)
--- NOTE | 2021-10-04 13:22 | ER ---
Nurse's Notes [facility] Name: Leena Galvez Age: 26 yrs Sex: Female : 1995 Arrival Date: 10/04/2021 Time: 12:01 Bed 4 Private MD: Diagnosis: Foreign body in right forearm - removed Presentation: 10/04 12:04 Chief complaint: Patient states: used Fish hook in Right forearm; incident happened vg1 about two hours ago. Coronavirus screen: Vaccine status: Patient reports being unvaccinated. Client denies travel out of the [place] in the last 14 days. Ebola Screen: Patient denies exposure to infectious person. Patient denies travel to an Ebola-affected area in the 21 days before illness onset. Initial Sepsis Screen: Does the patient meet any 2 criteria? No. Patient's initial sepsis screen is negative. Does the patient have a suspected source of infection? No. Patient's initial sepsis screen is negative. Risk Assessment: Do you want to hurt yourself or someone else? Patient reports no desire to harm self or others. Onset of symptoms was October 04, 2021. 12:04 Method Of Arrival: Ambulatory vg1 12:04 Acuity: CIRO 3 vg1 Triage Assessment: 12:07 General: Appears uncomfortable, Behavior is calm, cooperative. Pain: Complains of pain vg1 in palmar aspect of right forearm. 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 Last tetanus immunization: unknown. - Social history:: Smoking status: Patient reports the use of cigarette tobacco products, smokes one-half pack cigarettes per day. Screenin:10 Abuse screen: Denies threats or abuse. Denies injuries from another. Nutritional bp screening: No deficits noted. Tuberculosis screening: No symptoms or risk factors identified. Fall Risk None identified. Assessment: 12:10 General: SEE TRIAGE NOTE. bp 13:46 Reassessment: PT D/C HOME AMBULATORY WITH FAMILY, DX WITH FB IN R FOREARM. bp Vital Signs: 12:04 BP 125 / 86; Pulse 90; Resp 16; Temp 98.2(TE); Pulse Ox 100% on R/A; Weight 58.97 kg; vg1 Height 4 ft. 11 in. (149.86 cm); Pain 6/10; 13:46 BP 121 / 81; Pulse 87; Resp 16; Pulse Ox 100% ; bp 12:04 Body Mass Index 26.26 (58.97 kg, 149.86 cm) vg1 ED Course: 12:01 Patient arrived in ED. rg4 12:07 Triage completed. vg1 12:07 Arm band placed on. vg1 12:10 Delgado Ernandez PA is PHCP. jmm 12:10 Howard Valero MD is Attending Physician. jmm 12:10 Patient has correct armband on for positive identification. Bed in low position. Call bp light in reach. Side rails up X2. 12:19 Eusebio Johnson, DAVID is Primary Nurse. bp 13:13 Assist provider with foreign body removal of a fish hook from right FOREARM using bp hemostats, Set up for procedure. Performed by Delgado LANCE Dressed with 4X4s, Patient tolerated well. 13:46 Patient did not have IV access during this emergency room visit. 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 Exp: bp 07/13/2023. Lot #: [id number]. } Route: IM; Site: right deltoid; 13:08 Follow up: Response: No adverse reaction bp 12:36 Drug: Lidocaine-Epinephrine -1%: (1:100,000) 20 ml {Note: AT B/S.} Volume: 20 ml; bp Route: Infiltration; Medication: 12:10 VIS not applicable for this client. bp Outcome: 13:22 Discharge ordered by . heather 13:46 Discharged to home ambulatory, with family. bp 13:46 Condition: stable 13:46 Discharge instructions given to patient, Instructed on discharge instructions, follow up and referral plans. medication usage, wound care, Demonstrated understanding of instructions, follow-up care, medications, wound care, Prescriptions given X 1. 13:47 Patient left the ED. bp Signatures: Delgado Ernandez PA PA jmm Garcia, Rubi rg4 Eusebio Johnson, RN RN Tiana Green RN RN vg1
--- NOTE | 2021-10-04 13:22 | EDPHYS ---
Physician Documentation [facility] Name: Leena Galvez Age: 26 yrs Sex: Female : 1995 Arrival Date: 10/04/2021 Time: 12:01 Bed 4 Private MD: ED Physician Howard Valero HPI: 10/04 12:12 This 26 yrs old Female presents to ER via Ambulatory with complaints of Fish Hook In [facility] Arm. 12:12 The patient or guardian complains of injury. Onset: The symptoms/episode began/occurred [facility] acutely, just prior to arrival. This is a 26-year-old female with history of hypothyroidism the presents emerged department after accidentally embedding a fishhook in her right forearm. Patient is not up-to-date on her tetanus immunization. Patient was fishing in salt water. 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 Last tetanus immunization: unknown. - Social history:: Smoking status: Patient reports the use of cigarette tobacco products, smokes one-half pack cigarettes per day. ROS: 12:12 Constitutional: Negative for fever, chills, and weight loss, Cardiovascular: Negative jm for chest pain, palpitations, and edema, Respiratory: Negative for shortness of breath, cough, wheezing, and pleuritic chest pain. 12:12 MS/extremity: Positive for injury or acute deformity. 12:12 All other systems are negative. Exam: 12:12 Constitutional: This is a well developed, well nourished patient who is awake, alert, jmm and in no acute distress. Head/Face: atraumatic. Eyes: EOMI, no conjunctival erythema appreciated ENT: Moist Mucus Membranes Neck: Trachea midline, Supple Chest/axilla: Normal chest wall appearance and motion. Cardiovascular: Regular rate and rhythm. No edema appreciated Respiratory: Normal respirations, no respiratory distress appreciated Abdomen/GI: Non distended, soft Back: Normal ROM 12:12 Musculoskeletal/extremity: [place] is embedded in the right forearm. 12:12 Skin: Appearance: Color: normal in color. 12:12 Neuro: Orientation: is normal, Mentation: is normal, Memory: is normal. 12:12 Psych: Behavior/mood is pleasant, cooperative. Vital Signs: 12:04 BP 125 / 86; Pulse 90; Resp 16; Temp 98.2(TE); Pulse Ox 100% on R/A; Weight 58.97 kg; vg1 Height 4 ft. 11 in. (149.86 cm); Pain 6/10; 13:46 BP 121 / 81; Pulse 87; Resp 16; Pulse Ox 100% ; bp 12:04 Body Mass Index 26.26 (58.97 kg, 149.86 cm) vg1 Procedures: 13:20 Foreign Body Removal: a fishhook, from the right arm, by incising to remove, using [facility] lidocaine 1% with epinephrine to anesthesize the area, Dressing: The patient tolerated the removal well. MDM: 12:12 Patient medically screened. [facility] 13:20 Data reviewed: vital signs, nurses notes. Counseling: I had a detailed discussion with [facility] the patient and/or guardian regarding: the historical points, exam findings, and any diagnostic results supporting the discharge/admit diagnosis, the need for outpatient follow up, to return to the emergency department if symptoms worsen or persist or if there are any questions or concerns that arise at home. 13:21 ED course: Patient given wound infection return precautions.. [facility] 10/04 12:25 Order name: Misc. Order: fish hook removal kit; Complete Time: 12:[address] [facility] 10/04 12:55 Order name: Wound Care; Complete Time: 13:[address] 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 Exp: bp 07/13/2023. Lot #: [id number]. } Route: IM; Site: right deltoid; 13:08 Follow up: Response: No adverse reaction bp 12:36 Drug: Lidocaine-Epinephrine -1%: (1:100,000) 20 ml {Note: AT B/S.} Volume: 20 ml; bp Route: Infiltration; Disposition Summary: 10/04/21 13:22 Discharge Ordered Location: Home jm Condition: Stable jmm Diagnosis - Foreign body in right forearm - removed jmm Followup: jmm - With: Private Physician - When: As needed - Reason: Recheck today's complaints, Continuance of care, Re-evaluation by your physician Discharge Instructions: - Discharge Summary Sheet [facility] - Puncture Wound [facility] Forms: - Medication Reconciliation Form [facility] - Thank You Letter [facility] - Antibiotic Education [facility] - Prescription Opioid Use [facility] Prescriptions: - Doxycycline Hyclate 100 mg Oral Tablet - take 1 tablet by ORAL route every 12 hours; 20 tablet; Refills: 0, Product [facility] Selection Permitted Signatures: Howard Valero MD MD cha Mickail, Joel, PA PA Eusebio Suresh, RN RN bp Tiana Self, RN RN vg1
[2021-10-04 13:51] VITALS: TEMP 98.2; O2SAT 100
[2021-10-04 13:52] VITALS: BP 121/81
== END 2021-10-04 13:47 | disposition home or self-care (01) ==
LOC: ER 11:57
PROC: 0JCG0ZZ Extirpation of Matter from Right Lower Arm Subcutaneous Tissue and Fascia, Open Approach (ICD-10-PCS; principal; 2021-10-04)
DX: S51.841A Puncture wound with foreign body of right forearm, initial encounter (principal); Z23 Encounter for immunization; E03.9 Hypothyroidism, unspecified; F17.210 Nicotine dependence, cigarettes, uncomplicated; Z88.1 Allergy status to other antibiotic agents; Z88.5 Allergy status to narcotic agent; Z88.6 Allergy status to analgesic agent; Z88.8 Allergy status to other drugs, medicaments and biological substances
CPT/HCPCS: 90471; 90714; 99283

== ENCOUNTER 2022-11-16 18:23 | Emergency (ER) | payer BC ==
--- OUTSIDE RECORDS SUMMARY | 2022-11-16 18:30 | XMS REPORT | Continuity of Care Document ---
:1995 Author Organization [facility] [place] t Address [address] [place] [address] [place] [id number] Care Team Providers Name Role Phone DINA SHARMA Primary Care Physician Unavailable NELSON RAMOS Attending Clinician Unavailable NELSON RAMOS Attending Clinician Unavailable Doctor Unassigned, [place] Attending Clinician Unavailable CANDIE LINARES Attending Clinician Unavailable Zachary GREEN, Candie Attending Clinician Zahira RN, Ella Nava Attending Clinician Unavailable DRE MILLIGAN Attending Clinician Unavailable Payers Payer Name Policy Type Policy Number Effective Date Expiration Date S ource [place] OF [place] - [id number] 2020 OUT OF STATE 00:00:00 WCI GENERICWCI [id number] 2017 [id number] 00:00:00 [facility] dical 2017-[facility] Branch tWCI Problems Condition Condition Condition Status Onset Resolution Last Treating Co mments Source Name Details Category Date Date Treatment Clinician Date Pelvic Pelvic Disease Active Univers pain pain 7-26 ity of 00:00: [place] 00 Medical [facility] Need for Need for Disease Active 2020-05 [...] Date Date Clinician Azithrom Propensi Active Rash 0 Univer s ycin ty to 6-28 ity of adverse 00:00: [place] reaction 00 Medical s Branch CLARITHR DRUG Active Rash 0 Univers OMYCIN INGREDI 6-28 ity of 00:00: [place] 00 Medical [facility] ERYTHROM DRUG Active Rash 0 Univers YCIN 6-28 ity of 00:00: [place] 00 Medical Branch PSEUDOEP DRUG Active N/V 0 Univers HEDRINE- 6-28 ity of GUAIFENE 00:00: [place] SIN 00 Medical Branch OXYCODON DRUG Active Other-Cmnt 0 Univ ers E-ACETAM 6- ity of INOPHEN 00:00: [place] [facility] AZITHROM DRUG Active Rash 0 Univers YCIN INGREDI 6- ity of 00:00: [place] 00 Medical Branch Clarithr Propensi Active Rash 0 Univer s omycin ty to 6-28 ity of adverse 00:00: [place] reaction 00 Medical s Branch Erythrom Propensi Active Rash 0 Univer s ycin ty to 6-28 ity of adverse 00:00: [place] reaction 00 Medical s Branch Pseudoep Propensi Active Nausea 0 Univer s hedrine- ty to and/or 6-28 ity of Guaifene adverse Vomiting 00:00: [place] sin reaction 00 Medical s Branch Oxycodon Propensi Active Other - See 0 Chest U nivers e-Acetam ty to comments 10-29 pain ity of inophen adverse 00:00: [place] reaction 00 Medical s Branch Social History Social Habit Start Date Stop Date Quantity Comments Source History of tobacco Cigarette Smoker University of use [facility] History [facility] o f Alcohol Frequency [facility] History [facility] o f Alcohol Std Drinks [facility] History [facility] o f Alcohol Binge [facility] Exposure to 2021-11-16 2021-11-26 Not sure University of SARS-CoV-2 (event) 00:00:00 10:32:00 [facility] Cigarettes smoked 2021-11-26 2021-11-26 Univers ity of current (pack per 00:00:00 00:00:00 [facility] ) - Reported Branch Cigarette 2021-11-26 2021-11-26 University of pack-years 00:00:00 00:00:00 [facility] Tobacco use and 2021-11-26 2021-11-26 Smokeless Universit y of exposure 00:00:00 00:00:00 tobacco non-user [facility] Alcohol Comment 2021-03-11 2021-03-11 socially Universit y of 00:00:00 00:00:00 [facility] Sex Ass[birth year] At [birth year] Universit y of 00:00:00 00:00:00 [facility] Smoking Status Start Date Stop Date Source Smokes tobacco daily 2021-11-26 00:00:00 Univers ity [facility] Medications Ordered Filled Start Stop Current Ordering Indication Dosage Frequency Signature Comments Components Source Medication Medication Date Date Medication? Clinician (SIG) Name Name Levothyroxi 2020-05 Yes Take by Uni vers ne 50 mcg 1-08 mouth. ity of capsule 10:17: [address] Levothyroxi 2020-05 Yes Take by Uni vers ne 50 mcg 1-08 mouth. ity of capsule 10:17: [address] ibuprofen Yes 800mg Take 1 Unive rs 800 mg 6-28 tablet by ity of tablet 00:00: mouth [place] 00 every 8 Medical (eight) Branch hours as needed (PAIN). ibuprofen Yes 800mg Take 1 Unive rs 800 mg 6-28 tablet by ity of tablet 00:00: mouth [place] 00 every 8 Medical (eight) Branch hours as needed (PAIN). Immunizations Ordered Filled Immunization Date Status Comments Sour e Immunization Name Name HPV9 2021-03-11 Completed [facility] 00:00:00 [facility] HPV9 2021-03-11 Completed [facility] 00:00:00 [facility] Vital Signs Vital Name Observation Time Observation Value Comments Source Systolic blood 2021-11-26 15:44:00 133 mm[Hg] Univer sity of pressure [facility] Diastolic blood 2021-11-26 15:44:00 82 mm[Hg] Unive rsity of pressure [facility] Heart rate 2021-11-26 15:44:00 76 /min Universi ty [facility] Body temperature 2021-11-26 15:44:00 36.83 Keri Univ ersity [facility] Respiratory rate 2021-11-26 15:44:00 18 /min [facility] Body height 2021-11-26 15:44:00 149.9 cm [facility] Body weight 2021-11-26 15:44:00 58.741 kg [facility] BMI 2021-11-26 15:44:00 26.16 kg/m2 [facility] Procedures Procedure Date / Time Performed Performing Clinician Sourc e POCT TEST 2021-11-26 16:15:00 Nelson Ramos [facility] POCT URINALYSIS W/O 2021-11-26 00:00:00 Nelson Ramos [facility] Encounters Start End Encounter Admission Attending Care Care Encounter Source Date/Time Date/Time Type Type Clinicians Facility Department ID 2021-12-04 2021-12-04 Outpatient R NELSON RAMOS [facility] B [id number] Univers 00:00:00 00:00:00 NELSON RAMOS [facility] 2021-11-26 2021-11-26 Outpatient R NELSON RAMOS [facility] B [id number] Univers 10:30:00 12:03:06 NELSON RAMOS [facility] 2021-11-26 2021-11-26 Office MIKKI Ramos [place] [id number] Univers 10:30:00 12:03:06 Visit Nelson RICHTER [id number] it y of WOMEN'S [id number] [facility] [id number] [place] [address] Branch 2021-11-26 2021-11-26 Outpatient R NELSON RAMOS [facility] B [id number] Univers 10:30:00 10:30:00 NELSON RAMOS [facility] 2021-06-12 2021-06-12 Orders Doctor ORTEGA [id number] Univers 00:00:00 00:00:00 Only Unassigned, JUSTIN [id number] ity of [place] [facility] [id number] [place] [id number] [facility] 009 Branch 2021-05-23 2021-05-23 Orders Doctor SHANNON [id number] Univers 00:00:00 00:00:00 Only Unassigned, JUSTIN [id number] ity of [place] [facility] [id number] [place] [id number] [facility] 009 [place] 2021-03-11 2021-03-11 Outpatient R [facility]ANDIE [facility] [id number] Univers [facility] 2021-03-11 Office Candie Linares [facility] [id number] Univers 09:49:46 11:17:23 Visit ROBER [id number] [id number] [facility] [id number] [facility] 134 Branch 2020-12-26 2020-12-26 Letter SHANNON Rodriges [id number] Univers 00:00:00 00:00:00 (Out) Ella Nava JUSTIN [id number] it y of HOSPITAL [id number] [place] [id number] [facility] 019 Branch 2020-12-24 2020-12-24 Outpatient R SRINI [facility] [id number] Univers 18:00:00 18:00:00 DRE [facility] Results Test Description Test Time Test Comments Results Result Comments Source POCT TEST 2021-11-26 16:15:00 Test Item Value Reference Range Interpretation Comme nts POCT PREG (test code = 1605) Negative On board controls acceptable with C Line (test code = 3574) Yes POCT PREG LOT # (test code = 3575) POCT PREG TEST DATE (test code = 3576) [id number] 16:15:00 Test Item Value Reference Range Interpretation Comments POCT PREG (test code = 1605) Negative On board controls acceptable with C Yes Line (test code = 3574) POCT PREG LOT # (test code = 3575) POCT PREG TEST DATE (test code = 3576) [facility]O SPECIFIC [id number] 15:42:00 Test Item Value Reference Range Interpretation Comments POCT PH U (test code = 3254) 5 mg/dl 5-8 POCT U LEUK EST (test code = negative Negative - Negative 3263) POCT U NIT (test code = 3262) negative Negative - Negative POCT U PROT (test code = 3259) negative Negative - Negative POCT U GLU (test code = 3256) negative Negative - Negative POCT U KETONE (test code = 3258) negative Negative - Negative POCT U BLD (test code = 3257) negative Negative - Negative [facility]O SPECIFIC [id number] 15:42:00 Test Item Value Reference Range Interpretation Comments POCT PH U (test code = 3254) 5 mg/dl 5-8 POCT U LEUK EST (test code = negative Negative - Negative 3263) POCT U NIT (test code = 3262) negative Negative - Negative POCT U PROT (test code = 3259) negative Negative - Negative POCT U GLU (test code = 3256) negative Negative - Negative POCT U KETONE (test code = 3258) negative Negative - Negative POCT U BLD (test code = 3257) negative Negative - Negative [facility]
[2022-11-16] MEDS ORDERED: NA CHLORIDE 0.9% 500 ML ONE (18:50)
[2022-11-16 19:01] LABS: Absolute Lymphocytes (CBC) 2.4 K/uL (0.7-4.9); Hematocrit 42.5 % (36.0-45.0); Lymphocytes % 25.6 % (15.3-44.8); MCV 91.7 fL (80-100); MPV 8.3 fL (7.6-11.3); RBC Red Blood Cell Count 4.64 M/uL (3.86-4.86)
[2022-11-16 19:06] LABS: Specific Gravity 1.021 (1.005-1.030)
[2022-11-16 19:22] LABS: Specific Gravity 1.021 (1.005-1.030); Urine Bacteria <20 /HPF (<20); Urine Bilirubin NEGATIVE (Negative); Urine Blood 1+ (Negative); Urine Clarity Turbid (Clear); Urine Color Light-Yellow (Yellow); Urine Glucose NEGATIVE (Negative); Urine Mucus 1+ /HPF (None Seen); Urine Protein NEGATIVE (Negative); Urine Urobilinogen Normal (Normal)
--- NOTE | 2022-11-16 19:36 | RAD REPORT ---
[facility]05 pm CLINICAL HISTORY: CHEST PAIN COMPARISON: Chest Single View dated 08/03/2020; Chest Pa And Lat (2 Views) dated 08/25/2016; CHEST PA A ND LAT 2 VIEW dated 09/26/2014 TECHNIQUE: Portable AP view of the chest. FINDINGS: The lungs are clear. No pneumothorax or effusion. The cardiomediastinal contours are unre markable. IMPRESSION: No acute cardiopulmonary process.
[2022-11-16 19:42] LABS: Protime INR 1.21
[2022-11-16] MEDS ORDERED: PROMETHAZINE INJ 25 MG/ML AMP ONE (19:44)
[2022-11-16] MEDS ORDERED: LORazepam 2 MG/ML VIAL ONE (19:44)
[2022-11-16] MEDS ORDERED: FENTANYL CITR 100 MCG/2 ML ONE (19:45)
[2022-11-16 20:02] LABS: ALT/SGPT 23 U/L (13-56); AST/SGOT 17 U/L (15-37); Alkaline Phosphatase 51 U/L (45-117); BUN Blood Urea Nitrogen 7 mg/dL (7-18); Bicarbonate 26 mEq/L (21-32); Bilirubin Total 0.4 mg/dL (0.2-1.0); Glomerular Filtration Rate 109 ml/min (=/>90); Glucose Level 90 mg/dL (74-106); Lipase 28 U/L (13-75); Magnesium 1.8 mg/dL (1.6-2.4); NT PRO-BNP 40 pg/mL (<125); Potassium 3.5 mEq/L (3.5-5.1); Protein, Total 7.7 g/dL (6.4-8.2); Sodium Level 136 mEq/L (136-145)
[2022-11-16 20:03] LABS: Troponin High Sensitivity < 3.0 pg/mL (<58.9)
[2022-11-16 20:32] LABS: Bilirubin Direct 0.1 mg/dL (0-0.2); Bilirubin Indirect, Calculated 0.3 mg/dL (0.2-0.8)
[2022-11-16 20:37] LABS: Benzodiazepines NEGATIVE (NEGATIVE); Cocaine NEGATIVE (NEGATIVE); Methadone NEGATIVE (NEGATIVE); Opiates NEGATIVE (NEGATIVE)
--- NOTE | 2022-11-16 20:44 | EDPHYS ---
Physician Documentation [facility] Name: Leena Galvez Age: 27 yrs Sex: Female : 1995 Arrival Date: 11/16/2022 Time: 18:23 Bed 17 Private MD: ED Physician Howard Valero HPI: 11/16 19:09 This 27 yrs old Female presents to ER via Ambulatory with complaints of Chest dianna Pain, Numbness Of Arm. 19:09 The patient or guardian reports chest pain that is located primarily in the substernal dianna area. The pain radiates to the left arm. Associated signs and symptoms: The patient has no apparent associated signs or symptoms. The chest pain is described as sharp. Duration: The patient or guardian reports a single episode, that is still ongoing. Modifying factors: The symptoms are alleviated by nothing. antacids, the symptoms are aggravated by activity. Severity of pain: At its worst the pain was mild moderate in the emergency department the pain has improved mildly. The patient has not experienced similar symptoms in the past. 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 - Social history:: Smoking status: Patient reports the use of cigarette tobacco products, smokes 1.5 packs per day. ROS: 19:10 Constitutional: Negative for fever, chills, and weight loss, Eyes: Negative for injury, dianna pain, redness, and discharge, ENT: Negative for injury, pain, and discharge, Neck: Negative for injury, pain, and swelling, Respiratory: Negative for shortness of breath, cough, wheezing, and pleuritic chest pain, Abdomen/GI: Negative for abdominal pain, nausea, vomiting, diarrhea, and constipation, Back: Negative for injury and pain, : Negative for injury, bleeding, discharge, and swelling, MS/Extremity: Negative for injury and deformity, Skin: Negative for injury, rash, and discoloration, Neuro: Negative for headache, weakness, numbness, tingling, and seizure, Psych: Negative for depression, anxiety, suicide ideation, homicidal ideation, and hallucinations, Allergy/Immunology: Negative for hives, rash, and allergies, Endocrine: Negative for neck swelling, polydipsia, polyuria, polyphagia, and marked weight changes, Hematologic/Lymphatic: Negative for swollen nodes, abnormal bleeding, and unusual bruising. 19:10 Cardiovascular: Positive for chest pain, of the chest. Exam: 19:10 Constitutional: This is a well developed, well nourished patient who is awake, alert, dianna and in no acute distress. Head/Face: Normocephalic, atraumatic. Eyes: Pupils equal round and reactive to light, extra-ocular motions intact. Lids and lashes normal. Conjunctiva and sclera are non-icteric and not injected. Cornea within normal limits. Periorbital areas with no swelling, redness, or edema. ENT: Nares patent. No nasal discharge, no septal abnormalities noted. Tympanic membranes are normal and external auditory canals are clear. Oropharynx with no redness, swelling, or masses, exudates, or evidence of obstruction, uvula midline. Mucous membranes moist. Neck: Trachea midline, no thyromegaly or masses palpated, and no cervical lymphadenopathy. Supple, full range of motion without nuchal rigidity, or vertebral point tenderness. No Meningismus. Chest/axilla: Normal chest wall appearance and motion. Nontender with no deformity. No lesions are appreciated. Cardiovascular: Regular rate and rhythm with a normal S1 and S2. No gallops, murmurs, or rubs. Normal PMI, no JVD. No pulse deficits. Respiratory: Lungs have equal breath sounds bilaterally, clear to auscultation and percussion. No rales, rhonchi or wheezes noted. No increased work of breathing, no retractions or nasal flaring. Abdomen/GI: Soft, non-tender, with normal bowel sounds. No distension or tympany. No guarding or rebound. No evidence of tenderness throughout. Back: No spinal tenderness. No costovertebral tenderness. Full range of motion. Skin: Warm, dry with normal turgor. Normal color with no rashes, no lesions, and no evidence of cellulitis. MS/ Extremity: Pulses equal, no cyanosis. Neurovascular intact. Full, normal range of motion. Neuro: Awake and alert, GCS 15, oriented to person, place, time, and situation. Cranial nerves II-XII grossly intact. Motor strength 5/5 in all extremities. Sensory grossly intact. Cerebellar exam normal. Normal gait. Psych: Awake, alert, with orientation to person, place and time. Behavior, mood, and affect are within normal limits. 19:10 ECG was reviewed by the Attending Physician. Vital Signs: 18:35 BP 121 / 73; Pulse 91; Resp 16; Temp 98.3; Pulse Ox 100% on R/A; Weight 58.06 kg; hb Height 4 ft. 11 in. ; Pain 8/10; 19:44 BP 115 / 75; Pulse 66; Resp 16; Pulse Ox 100% on R/A; mb9 20:15 BP 106 / 67; Pulse 62; Resp 16 S; Pulse Ox 98% on R/A; ha1 18:35 Body Mass Index 25.85 (58.06 kg, 149.86 cm) hb 18:35 Pain Scale: Adult hb MDM: 18:37 Patient medically screened. idanna 19:12 Differential diagnosis: abnormal EKG, acute myocardial infarction, acute pericarditis, dianna anxiety, coronary artery disease chest wall pain, Cholelithiasis esophagitis, gastritis, herpes zoster, hiatal hernia, peptic ulcer disease, pericarditis, pleurisy, pneumonia, pneumothorax, pulmonary embolus, stable angina, thoracic aortic disection, unstable angina. HEART Score: History: Slightly Suspicious (0), ECG: Normal (0), Age: < or = 45 years (0), Risk Factors: 1 or 2 risk factors (1), [Active Smoker] Troponin: < or = 1 x Normal Limit (0). MAYELA Risk Score: TOTAL SCORE = 0. Data reviewed: vital signs, nurses notes, lab test result(s), EKG, radiologic studies, plain films. Consideration of Admission/Observation Escalation of care including admission/observation considered. I considered the following discharge prescriptions or medication management in the emergency department Medications were administered in the Emergency Department. See MAR. Independent interpretation of the following test(s) in the Emergency Department EKG: See my EKG interpretation above. Test considered but Not performed: Ultrasound no echo. Historians other than the Patient: Parent: dad. 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 11/16 18:40 Order name: Basic Metabolic Panel; Complete Time: 20:40 [facility] 11/16 18:40 Order name: CBC with Diff; Complete Time: 19:24 dianna 11/16 18:40 Order name: D-Dimer; Complete Time: 20:40 [facility] 11/16 18:40 Order name: LFT's; Complete Time: 20:40 [facility] 11/16 20:41 Interpretation: Normal except: GLOB 3.7. 11/16 18:40 Order name: Magnesium; Complete Time: 20:40 [facility] 11/16 18:40 Order name: NT PRO-BNP; Complete Time: 20:40 [facility] 11/16 18:40 Order name: PT-INR; Complete Time: 20:40 [facility] 11/16 20:41 Interpretation: PT 13.3; Reviewed. 11/16 18:40 Order name: Troponin HS; Complete Time: 20:40 [facility] 11/16 18:40 Order name: Lipase; Complete Time: 20:40 [facility] 11/16 18:40 Order name: Urinalysis w/ reflexes; Complete Time: 19:24 [facility] 11/16 20:41 Interpretation: Normal except: UCLA Turbid; UKET 1+; UBLD 1+; URBC 5-10. 11/16 18:40 Order name: PREGU; Complete Time: 19:24 dianna 11/16 18:40 Order name: UDS [facility] 11/16 18:40 Order name: XRAY Chest (1 view); Complete Time: 20:40 [facility] 11/16 18:40 Order name: EKG; Complete Time: 18:40 [facility] 11/16 18:40 Order name: Cardiac monitoring; Complete Time: 18:41 [facility] 11/16 18:40 Order name: EKG - Nurse/Tech; Complete Time: 18:41 [facility] 11/16 18:40 Order name: IV Saline Lock; Complete Time: 18:41 [facility] 11/16 18:40 Order name: Labs collected and sent; Complete Time: 18:41 [facility] 11/16 18:40 Order name: O2 Per Protocol; Complete Time: 18:41 [facility] 11/16 18:40 Order name: O2 Sat Monitoring; Complete Time: 18:41 [facility] 11/16 19:09 Order name: Labs - recollect needed: light blue please; Complete Time: 19:31 [email or web address] 11/16 19:24 Order name: Bilateral blood pressure; Complete Time: 19:31 [facility] EC:10 Rate is 77 beats/min. Rhythm is regular. QRS Sandoval is Normal. TN interval is shortened dianna at 106 msec. QRS interval is normal. QT interval is normal. No Q waves. T waves are Normal. No ST changes noted. Clinical impression: NSR w/ Non-specific ST/T Changes and No evidence of ischemia. Interpreted by me. Reviewed by me. Administered Medications: 18:49 Drug: NS 0.9% IV 500 ml Route: IV; Rate: bolus; Site: right antecubital; mb9 19:38 Drug: Promethazine IVP 12.5 mg Route: IVP; Site: right antecubital; mb9 19:40 Drug: Ativan IVP 0.5 mg Route: IVP; Site: right antecubital; mb9 19:43 Drug: fentaNYL (PF) IVP 25 mcg Route: IVP; Site: right antecubital; mb9 Disposition Summary: 11/16/22 20:44 Discharge Ordered Location: Home cp Problem: new cp Symptoms: have improved cp Condition: Stable cp Diagnosis - Chest pain, unspecified cp - Tobacco abuse counseling cp - Tobacco use cp - Adjustment disorder with anxiety - stress cp Followup: dianna - With: Private Physician - When: 2 - 3 days - Reason: Recheck today's complaints, Continuance of care, Re-evaluation by your physician Followup: dianna - With: - When: 2 - 3 days - Reason: Recheck today's complaints, Re-evaluation by your physician Discharge Instructions: - Discharge Summary Sheet dianna - Adjustment Disorder, Adult dianna - Nonspecific Chest Pain, Adult dianna - Steps to Quit Smoking dianna - Health Risks of Smoking dianna - Nonspecific Chest Pain, Adult, [id number] dianna Forms: - Medication Reconciliation Form cp - Thank You Letter cp - Antibiotic Education cp - Prescription Opioid Use cp - Patient Portal Instructions cp Prescriptions: - Pepcid 20 mg Oral Tablet - take 1 tablet by ORAL route every 12 hours for 10 days; 20 tablet; Refills: 0, dianna Product Selection Permitted - Xanax 0.5 mg Oral Tablet - take 1 tablet by ORAL route every 8 hours As needed; 20 tablet; Refills: 0, [facility] Product Selection Permitted - Medrol (Sp[place]) 4 mg Oral Tablets, Dose Pack - take 1 tablet by ORAL route as directed - follow package instructions; 1 cp packet; Refills: 0, Product Selection Permitted Signatures: Dispatcher [employer] EDHoward Baumann MD MD cha Page, Corey, PA Anitra Lopez cp, RN RN Courtney Mcwilliams1 Bella Singh RN RN mb9
--- NOTE | 2022-11-16 20:44 | ER ---
Nurse's Notes [facility] Name: Leena Galvez Age: 27 yrs Sex: Female : 1995 Arrival Date: 11/16/2022 Time: 18:23 Bed 17 Private MD: Diagnosis: Chest pain, unspecified;Tobacco abuse counseling;Tobacco use;Adjustment disorder with anxiety-stress Presentation: 11/16 18:35 Chief complaint: Left sided chest pain that radiates to left arm, nausea, and SOB x 2 hb days. Coronavirus screen: At this time, the client does not indicate any symptoms associated with coronavirus-19. Ebola Screen: No symptoms or risks identified at this time. Initial Sepsis Screen: Does the patient meet any 2 criteria? No. Patient's initial sepsis screen is negative. Does the patient have a suspected source of infection? No. Patient's initial sepsis screen is negative. Risk Assessment: Do you want to hurt yourself or someone else? Patient reports no desire to harm self or others. Onset of symptoms was November 15, 2022. 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 - Social history:: Smoking status: Patient reports the use of cigarette tobacco products, smokes 1.5 packs per day. Screenin:48 [facility] ED Fall Risk Assessment (Adult) History of falling in the last 3 months, mb9 including since admission No falls in past 3 months (0 pts) Confusion or Disorientation No (0 pts) Intoxicated or Sedated No (0 pts) Impaired Gait No (0 pts) Mobility Assist Device Used No (0 pt) Altered Elimination No (0 pt) Score/Fall Risk Level 0 - 2 = Low Risk Oriented to surroundings, Maintained a safe environment, Educated pt \T\ family on fall prevention, incl call for assistance when getting out of bed. Abuse screen: Denies threats or abuse. Nutritional screening: No deficits noted. Tuberculosis screening: No symptoms or risk factors identified. Assessment: 18:48 General: Appears in no apparent distress. Behavior is anxious. Pain: Complains of pain mb9 in chest Pain radiates to left chest Pain currently is 6 out of 10 on a pain scale. Quality of pain is described as throbbing, Pain began 2-3 days ago. Is intermittent. Neuro: Zelaya Agitation-Sedation Scale (RASS): 0 - Alert and Calm Level of Consciousness is awake, alert, obeys commands, Oriented to person, place, time, situation, Appropriate for age. Cardiovascular: Reports chest pain, Heart tones S1 S2 present Patient's skin is warm and dry. Rhythm is regular. Respiratory: Reports cough that is Airway is patent Respiratory effort is even, unlabored, Respiratory pattern is regular, symmetrical, Breath sounds are clear bilaterally. GI: Abdomen is flat, non-distended, Bowel sounds present X 4 quads. Abd is soft and non tender X 4 quads. Reports diarrhea. Derm: Skin is pink, warm \T\ dry. Musculoskeletal: Range of motion: intact in all extremities. 19:44 Reassessment: No changes from previously documented assessment. Patient and/or family mb9 updated on plan of care and expected duration. Pain level reassessed. Patient is alert, oriented x 3, equal unlabored respirations, skin warm/dry/pink. 20:50 Reassessment: Patient and/or family updated on plan of care and expected duration. Pain ha1 level reassessed. Patient is alert, oriented x 3, equal unlabored respirations, skin warm/dry/pink. Patient denies pain at this time. Patient states feeling better. Patient states symptoms have improved. Vital Signs: 18:35 BP 121 / 73; Pulse 91; Resp 16; Temp 98.3; Pulse Ox 100% on R/A; Weight 58.06 kg; hb Height 4 ft. 11 in. ; Pain 8/10; 19:44 BP 115 / 75; Pulse 66; Resp 16; Pulse Ox 100% on R/A; mb9 20:15 BP 106 / 67; Pulse 62; Resp 16 S; Pulse Ox 98% on R/A; ha1 18:35 Body Mass Index 25.85 (58.06 kg, 149.86 cm) hb 18:35 Pain Scale: Adult hb ED Course: 18:28 Patient arrived in ED. am2 18:29 Bella Singh, RN is Primary Nurse. mb9 18:32 Arm band placed on. mb9 18:32 Placed in gown. Bed in low position. Call light in reach. Side rails up X 1. Client mb9 placed on continuous cardiac and pulse oximetry monitoring. NIBP monitoring applied. cardiac monitor on. 18:36 Triage completed. hb 18:37 Howard Valero MD is Attending Physician. dianna 18:40 EKG done, by ED staff, reviewed by Bella Singh RN. Inserted saline lock: 20 mb9 gauge in right antecubital area, using aseptic technique. 19:07 XRAY Chest (1 view) In Process Unspecified. EDMS 20:44 Hoang Jose MD is Referral Physician. cp 20:57 No provider procedures requiring assistance completed. IV discontinued, intact, ha1 bleeding controlled, No redness/swelling at site. Pressure dressing applied. Patient maintains SpO2 saturation greater than 95% on room air. 20:58 Provided Education on: following up with cardiology.. ha1 Administered Medications: 18:49 Drug: NS 0.9% IV 500 ml Route: IV; Rate: bolus; Site: right antecubital; mb9 19:38 Drug: Promethazine IVP 12.5 mg Route: IVP; Site: right antecubital; mb9 19:40 Drug: Ativan IVP 0.5 mg Route: IVP; Site: right antecubital; mb9 19:43 Drug: fentaNYL (PF) IVP 25 mcg Route: IVP; Site: right antecubital; mb9 Medication: 18:33 VIS not applicable for this client. mb9 Outcome: 20:44 Discharge ordered by . cp 20:57 Discharged to home ambulatory, with family. ha1 20:57 Condition: stable 20:57 Discharge instructions given to patient, family, Instructed on discharge instructions, follow up and referral plans. medication usage, Demonstrated understanding of instructions, follow-up care, medications, Prescriptions given X 3. 20:58 Patient left the ED. ha1 Signatures: Dispatcher [employer] EDRI Howard Valero MD MD cha Page, Corey, PA Anitra Lopez cp, RN RN Orly Atkins 2 Ivonne Goins RN RN 1 Bella Singh RN RN mb9
[2022-11-16 21:03] VITALS: TEMP 98.3
[2022-11-16 21:05] VITALS: BP 106/67; O2SAT 98
[2022-11-16 21:13] LABS: Barbiturates NEGATIVE (NEGATIVE); METHAMPHETAM POSITIVE (NEGATIVE); Phencyclidine NEGATIVE (NEGATIVE); THC Cannibis NEGATIVE (NEGATIVE)
--- NOTE | 2022-11-17 11:43 | EKG ---
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
== END 2022-11-16 20:58 | disposition home or self-care (01) ==
LOC: ER 18:23
DX: R07.9 Chest pain, unspecified (principal); F43.22 Adjustment disorder with anxiety; Z72.0 Tobacco use; Z71.6 Tobacco abuse counseling
CPT/HCPCS: 93005; 85025; 81001; 80048; 36415; 83735; 81025; 85610; 85379; 80076; 84484; 83690; 83880; 80307; 71045; 96375; 96374; 99285; J2550; J3010; J7040

== ENCOUNTER 2022-12-11 09:07 | Emergency (ER) | payer BC, OTHER ==
--- OUTSIDE RECORDS SUMMARY | 2022-12-11 09:11 | XMS REPORT | Continuity of Care Document ---
:1995 Author Organization [facility] t Address [address] [place] [address] [place] [id number] Care Team Providers Name Role Phone DINA SHARMA Primary Care Physician Unavailable ZACHARIAH RAMOS Attending Clinician Unavailable ZACHARIAH RAMOS Attending Clinician Unavailable Doctor Unassigned, [place] Attending Clinician Unavailable SHANNON LINARES Attending Clinician Unavailable Shannon Linares MD Attending Clinician Zahira RN, Ella Nava Attending Clinician Unavailable DRE MILLIGAN Attending Clinician Unavailable Payers Payer Name Policy Type Policy Number Effective Date Expiration Date S ource [employer] [place] - [id number] 2020 OUT OF STATE 00:00:00 WCI GENERICWCI [id number] 2017 [id number] 00:00:[address] [facility] dical 2017-[facility] [place] tWCI Problems Condition Condition Condition Status Onset [...] DRUG Active Other-Cmnt 0 Univ ers E-ACETAM 10-29 ity of INOPHEN 00:00: [place] [facility] [...] 0 Univer s hedrine- ty to and/or 6 ity of Guaifene adverse Vomiting 00:00: [place] sin reaction 00 Medical s Branch Oxycodon Propensi Active Other - See 0 Chest U nivers e-Acetam ty to comments 10-29 pain ity of inophen adverse 00:00: [place] reaction 00 [facility] s [place] Social History Social Habit Start Date Stop Date Quantity Comments Source History of tobacco Cigarette Smoker University of use [facility] History [facility] o f Alcohol Frequency [facility] History [facility] o f Alcohol Std Drinks [facility] History [facility] o f Alcohol Binge [facility] Exposure to 2021-11-16 2021-11-26 Not sure University of SARS-CoV-2 (event) 00:00:00 10:32:00 [facility] Cigarettes smoked 2021-11-26 2021-11-26 Univers ity of current (pack per 00:00:00 00:00:00 [facility] ) - Reported Branch Cigarette 2021-11-26 2021-11-26 University of pack-years 00:00:00 00:00:00 [facility] Tobacco use and 2021-11-26 2021-11-26 Smokeless Universit y of exposure 00:00:00 00:00:00 tobacco non-user [facility] Alcohol Comment 2021-03-11 2021-03-11 socially Universit y of 00:00:00 00:00:00 [facility] Sex Ass[birth year] Universit y of 00:00:00 00:00:00 [facility] Smoking Status Start Date Stop Date Source Smokes tobacco daily 2021-11-26 00:00:00 [facility] ity [facility] Medications Ordered Filled Start Stop Current Ordering Indication Dosage Frequency Signature Comments Components Source Medication Medication Date Date Medication? Clinician (SIG) Name Name Levothyroxi 2020-05 Yes Take by Uni vers ne 50 mcg 1-08 mouth. ity of capsule 10:17: [address] Levothyroxi 2020-05 Yes Take by Uni vers ne 50 mcg 1-08 mouth. ity of capsule 10:17: [address] ibuprofen Yes 800mg Take 1 Unive rs 800 mg 6-28 tablet by ity of tablet 00:00: mouth [place] 00 every 8 Medical (eight) Branch hours as needed (PAIN). ibuprofen Yes 800mg Take 1 Unive rs 800 mg 6-28 tablet by ity of tablet 00:00: mouth [place] 00 every 8 Medical (eight) Branch hours as needed (PAIN). Immunizations Ordered Filled Immunization Date Status Comments [facility] e Immunization Name Name HPV9 2021-03-11 Completed [facility] 00:00:00 [facility] HPV9 2021-03-11 Completed [facility] 00:00:00 [facility] Vital Signs Vital Name Observation Time Observation Value Comments Source Systolic blood 2021-11-26 15:44:00 133 mm[Hg] Univer sity of pressure [facility] Diastolic blood 2021-11-26 15:44:00 82 mm[Hg] Unive rsity of pressure [facility] Heart rate 2021-11-26 15:44:00 76 /min Universi ty [facility] Body temperature 2021-11-26 15:44:00 36.83 Keri Univ ersity [facility] Respiratory rate 2021-11-26 15:44:00 18 /min [facility] Body height 2021-11-26 15:44:00 149.9 cm [facility] Body weight 2021-11-26 15:44:00 58.741 kg [facility] BMI 2021-11-26 15:44:00 26.16 kg/m2 [facility] Procedures Procedure Date / Time Performed Performing Clinician Sourc e POCT TEST 2021-11-26 16:15:[address] [facility] POCT URINALYSIS W/O 2021-11-26 00:00:00 Zachariah Ramos [facility] Encounters Start End Encounter Admission Attending Care Care Encounter Source Date/Time Date/Time Type Type Clinicians Facility Department ID 2021-12-04 2021-12-04 Outpatient R ZACHARIAH RAMOS [facility] B [id number] Univers 00:00:00 00:00:00 ZACHARIAH RAMOS [facility] 2021-11-26 2021-11-26 Outpatient R ZACHARIAH RAMOS [facility] B [id number] Univers 10:30:00 12:03:06 ZACHARIAH RAMOS [facility] 2021-11-26 2021-11-26 Office MIKKI Ramos [place] [id number] Univers 10:30:00 12:03:06 Visit Zachariah RICHTER [id number] it y of WOMEN'S [id number] [facility] [phone] [place] [address] Branch 2021-11-26 2021-11-26 Outpatient R ZACHARIAH RAMOS [facility] B [id number] Univers 10:30:00 10:30:00 ZACHARIAH RAMOS [facility] 2021-06-12 2021-06-12 Orders Doctor ORTEGA [id number] Univers 00:00:00 00:00:00 Only Unassigned, JUSTIN [id number] ity of [place] [facility] [id number] [place] [id number] [facility] 009 [place] 2021-05-23 2021-05-23 Orders Doctor SHANNON [id number] Univers 00:00:00 00:00:00 Only Unassigned, JUSTIN [id number] ity of [place] [facility] [id number] [place] [phone] [facility] 009 [place] 2021-03-11 2021-03-11 Outpatient R VIJAYSHANNON [facility] [id number] Univers 10:00:00 [facility]17[facility] 2021-03-11 2021-03-11 Office Shannon Linares [facility] [id number] Univers 09:49:46 11:17:23 Visit ROBER [id number] it y of WOMEN'S [id number] [place] [facility] [phone] [facility] 134 Branch 2020-12-26 2020-12-26 Letter SHANNON Rodriges [id number] Univers 00:00:00 00:00:00 (Out) Ella Nava JUSTIN [id number] it y of HOSPITAL [id number] [place] [phone] [facility] 019 Branch 2020-12-24 2020-12-24 Outpatient R SRINI [facility] [id number] Univers 18:00:00 18:00:[address] [facility] Results Test Description Test Time Test Comments Results Result Comments Source POCT TEST 2021-11-26 16:15:00 Test Item Value Reference Range Interpretation Comme nts POCT PREG (test code = 1605) Negative On board controls acceptable with C Line (test code = 3574) Yes POCT PREG LOT # (test code = 3575) PO[facility]REG TEST DATE (test code = 3576[id number] 16:15:00 Test Item Value Reference Range Interpretation Comments POCT PREG (test code = 1605) Negative On board controls acceptable with C Yes Line (test code = 3574) POCT PREG LOT # (test code = 3575) POCT PREG TEST DATE (test code = 3576) [facility] SPECIFIC [id number] 15:42:00 Test Item Value Reference Range Interpretation [...] code = 3257) negative Negative - Negative [facility] SPECIFIC [id number] 15:42:00 Test Item Value Reference Range Interpretation [...] code = 3257) negative Negative - Negative [facility]
[2022-12-11] MEDS ORDERED: KETOROLAC 30 MG/ML INJ ONE (09:36)
--- NOTE | 2022-12-11 10:41 | RAD REPORT ---
EXAM DESCRIPTION: RAD - Knee Right 3 View - 12/11/2022 10:33 am CLINICAL HISTORY: Swelling;Pain COMPARISON: No comparisons FINDINGS: No bone or joint abnormality is detected. No joint effusion.
--- NOTE | 2022-12-11 10:47 | EDPHYS ---
Physician Documentation [facility] Name: Leena Galvez Age: 27 yrs Sex: Female : 1995 Arrival Date: 12/11/2022 Time: 09:07 Bed 4 Private MD: ED Physician [place] HPI: 12/11 10:04 This 27 yrs old Female presents to ER via EMS with complaints of Right knee pain. 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 Patient states that she was in the process of bending down and her knee gave out on her and she had to come to the ground. She denies any direct trauma, numbness or tingling, pain or bleeding at this time. No prior injury to the knee noted. On review of systems, she denies headache, fever, neck pain, chest pain, shortness of breath, abdominal pain, back pain, radiculopathy, numbness, tingling, any other signs or symptoms at this time.. 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 - Social history:: Smoking status: Patient denies any tobacco usage or history of. ROS: 10:05 Constitutional: Negative for fever, chills, and weight loss, Eyes: Negative for injury, sp3 pain, redness, and discharge, ENT: Negative for injury, pain, and discharge, Neck: Negative for injury, pain, and swelling, Cardiovascular: Negative for chest pain, palpitations, and edema, Respiratory: Negative for shortness of breath, cough, wheezing, and pleuritic chest pain, Abdomen/GI: Negative for abdominal pain, nausea, vomiting, diarrhea, and constipation, Back: Negative for injury and pain, Skin: Negative for injury, rash, and discoloration, Neuro: Negative for headache, weakness, numbness, tingling, and seizure, Psych: Negative for depression, anxiety, suicide ideation, homicidal ideation, and hallucinations, Allergy/Immunology: Negative for hives, rash, and allergies, Endocrine: Negative for neck swelling, polydipsia, polyuria, polyphagia, and marked weight changes. 10:05 All other systems are negative. Exam: 10:06 Constitutional: This is a well developed, well nourished patient who is awake, alert, sp3 and in no acute distress. Neck: Trachea midline, no thyromegaly or masses palpated, and no cervical lymphadenopathy. Supple, full range of motion without nuchal rigidity, or vertebral point tenderness. No Meningismus. Chest/axilla: Normal chest wall appearance and motion. Nontender with no deformity. No lesions are appreciated. Cardiovascular: Regular rate and rhythm with a normal S1 and S2. No gallops, murmurs, or rubs. Normal PMI, no JVD. No pulse deficits. Back: No spinal tenderness. No costovertebral tenderness. Full range of motion. Skin: Warm, dry with normal turgor. Normal color with no rashes, no lesions, and no evidence of cellulitis. Neuro: Awake and alert, GCS 15, oriented to person, place, time, and situation. Cranial nerves II-XII grossly intact. Motor strength 5/5 in all extremities. Sensory grossly intact. Cerebellar exam normal. Normal gait. Psych: Awake, alert, with orientation to person, place and time. Behavior, mood, and affect are within normal limits. 10:06 Musculoskeletal/extremity: Right knee with mild effusion. No laxity in the ligaments or drawer signs noted. Distal neurovascular exam is normal. Range of motion is intact but painful. Remainder of extremity exams musculoskeletal exam is normal.. Vital Signs: 09:00 BP 113 / 77; Pulse 66; Resp 18; Temp 97; Pulse Ox 100% on R/A; ko1 09:53 BP 109 / 70; Pulse 58; Resp 18; Pulse Ox 100% ; ko1 10:47 BP 102 / 62; Pulse 72; Resp 16; Pulse Ox 100% ; ko1 MDM: 09:22 Patient medically screened. sp3 10:06 Data reviewed: vital signs, nurses notes, EMS record, radiologic studies. ED course: sp3 27-year-old female with right knee internal derangement. X-rays demonstrate no significant abnormality. Will place patient in a knee immobilizer and crutches and have her follow-up with orthopedics outpatient for outpatient MRI and further elucidation of her pathology and symptoms.. 12/11 09:21 Order name: Knee Right 3 View XRAY; Complete Time: 10:43 sp3 12/11 09:21 Order name: Knee Immobilizer; Complete Time: 10:26 sp3 12/11 09:21 Order name: Crutches; Complete Time: 09:32 sp3 Administered Medications: 09:26 Drug: Ketorolac IVP 30 mg Route: IVP; Site: left antecubital; ko1 Disposition Summary: 12/11/22 10:46 Discharge Ordered Location: Home sp3 Condition: Stable sp3 Diagnosis - Internal derangement of the right knee, knee sprain sp3 Followup: sp3 - With: Milton Diane MD - When: Upon discharge from the Emergency Department - Reason: Further diagnostic work-up Discharge Instructions: - Discharge Summary Sheet sp3 - How to Use a Knee Immobilizer sp3 - Acute Knee Pain, Adult sp3 Forms: - Medication Reconciliation Form sp3 - Thank You Letter sp3 - Antibiotic Education sp3 - Prescription Opioid Use sp3 - Patient Portal Instructions sp3 - Work release form ko1 Prescriptions: - Diclofenac Sodium 75 mg Oral Tablet Sustained Release - take 1 tablet by ORAL route 2 times per day; 30 tablet; Refills: 0, Product sp3 Selection Permitted Signatures: Dispatcher [employer] EDMS [place] MD MD sp3 Chanel Tavera RN RN ko1
--- NOTE | 2022-12-11 10:47 | ER ---
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 She initially complained of pain 02/10, now it is a dull ache with occasional "electric shocks" that go down the leg. She received two doses of fentanyl (25 mcg each) IV in route. Coronavirus screen: At this time, the client does not indicate any symptoms associated with coronavirus-19. Ebola Screen: No symptoms or risks identified at this time. Initial Sepsis Screen: Does the patient meet any 2 criteria? No. Patient's initial sepsis screen is negative. Does the patient have a suspected source of infection? No. Patient's initial sepsis screen is negative. Risk Assessment: Do you want to hurt yourself or someone else? Patient reports no desire to harm self or others. Onset of symptoms was December 11, 2022. Care prior to arrival: Splint applied. Medication(s) given: Fentanyl total of 50 mcg (25mcg each dose) IV initiated. 20 GA, in the left antecubital area. Mechanism of Injury: Fall from standing position. 09:00 Method Of Arrival: EMS: [facility] ko1 09:00 Acuity: CIRO 3 ko1 Triage Assessment: 09:16 General: Appears in no apparent distress. uncomfortable, Behavior is calm, cooperative, ko1 appropriate for age. Pain: Complains of pain in right knee. 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 - Social history:: Smoking status: Patient denies any tobacco usage or history of. Screenin:00 [facility] ED Fall Risk Assessment (Adult) History of falling in the last 3 months, ko1 including since admission Yes- single mechanical fall (1 pt) Confusion or Disorientation No (0 pts) Intoxicated or Sedated No (0 pts) Impaired Gait No (0 pts) Mobility Assist Device Used No (0 pt) Altered Elimination No (0 pt) Score/Fall Risk Level 0 - 2 = Low Risk Oriented to surroundings, Maintained a safe environment, Educated pt \\T\\ family on fall prevention, incl call for assistance when getting out of bed, Assessed \\T\\ reinforced patient's understanding of fall precautions, Provided non-skid footwear, Hourly rounding (assess needs \\T\\ fall precautionary measures) done, Used ambulatory aids as needed (educated on \\T\\ assisted with), Used gait belt as appropriate. Abuse screen: Denies threats or abuse. Denies injuries from another. Nutritional screening: No deficits noted. Tuberculosis screening: No symptoms or risk factors identified. Assessment: 09:00 Neuro: No deficits noted. Cardiovascular: No deficits noted. Respiratory: No deficits ko1 noted. GI: No deficits noted. : No deficits noted. EENT: No deficits noted. Derm: No deficits noted. Musculoskeletal: Reports pain in right knee. Vital Signs: 09:00 BP 113 / 77; Pulse 66; Resp 18; Temp 97; Pulse Ox 100% on R/A; ko1 09:53 BP 109 / 70; Pulse 58; Resp 18; Pulse Ox 100% ; ko1 10:47 BP 102 / 62; Pulse 72; Resp 16; Pulse Ox 100% ; ko1 ED Course: 09:00 Patient has correct armband on for positive identification. Bed in low position. Call ko1 light in reach. Side rails up X2. Provided Education on: NA. Pulse ox on. NIBP on. Door closed. Noise minimized. Warm blanket given. 09:00 Maintain EMS IV. Dressing intact. Good blood return noted. Site clean \\T\\ dry. Gauge \\T\\ ko 1 site: 20g L AC. Flushed. 09:11 Patient arrived in ED. ko1 09:11 Chanel Tavera, RN is Primary Nurse. ko1 09:12 Jurgen Park MD is Attending Physician. sp3 09:16 Triage completed. ko1 09:16 Arm band placed on left wrist. Patient placed in an exam room, on a stretcher, on pulse ko1 oximetry, Patient notified of wait time. 10:35 Knee Right 3 View XRAY In Process Unspecified. EDMS 10:44 Milton Diane MD is Referral Physician. sp3 10:47 No provider procedures requiring assistance completed. IV discontinued, intact, ko1 bleeding controlled, No redness/swelling at site. Pressure dressing applied. Knee immobilizer applied on right knee. 10:47 Crutch training done. ko1 Administered Medications: 09:26 Drug: Ketorolac IVP 30 mg Route: IVP; Site: left antecubital; ko1 Medication: 10:47 VIS not applicable for this client. ko1 Outcome: 10:46 Discharge ordered by . sp3 11:01 Discharged to home ambulatory, with crutches, with family. ko1 11:01 Condition: stable 11:01 Discharge instructions given to patient, family, Instructed on discharge instructions, follow up and referral plans. crutch walking, Demonstrated understanding of instructions, follow-up care, medications, crutch walking, Prescriptions given X 1. 11:05 Patient left the ED. ko1 Signatures: Dispatcher [employer] EDMS Jurgen Park MD MD sp3 Chanel Tavera, RN RN ko1
[2022-12-11 11:10] VITALS: O2SAT 100
[2022-12-11 11:11] VITALS: BP 102/62
== END 2022-12-11 11:05 | disposition home or self-care (01) ==
LOC: ER 09:07
DX: M23.91 Unspecified internal derangement of right knee (principal); S83.91XA Sprain of unspecified site of right knee, initial encounter; Z88.1 Allergy status to other antibiotic agents; Z88.3 Allergy status to other anti-infective agents; Z88.5 Allergy status to narcotic agent; Z88.6 Allergy status to analgesic agent; Z88.8 Allergy status to other drugs, medicaments and biological substances
CPT/HCPCS: 96374; 99284

== ENCOUNTER 2024-05-02 18:55 | Emergency (ER) | payer BC ==
[2024-05-02 19:59] LABS: Absolute Basophils 0.1 K/uL (0-0.5); Absolute Eosinophils 0.2 K/uL (0-0.5); Absolute Lymphocytes (CBC) 3.1 K/uL (0.7-4.9); Absolute Monocytes 0.7 K/uL (0.1-1.3); Absolute Neutrophil 5.7 K/uL (1.8-8.0); Basophils % 1.2 % (0-1.3); Eosinophils % 2.1 % (0-4.4); Hematocrit 39.1 % (36.0-45.0); Hemoglobin 12.9 g/dL (12.0-15.0); Lymphocytes % 31.5 % (15.3-44.8); MCH 29.9 pg (27.0-35.0); MCV 90.6 fL (80-100); MPV 7.3 fL (7.6-11.3); Monocytes % 7.6 % (3.3-12.3); Neutrophils % 57.6 % (41.7-73.7); Nucleated Red Blood Cells % 0.1 % (0-0); Platelets 315 thou/uL (152-406); RBC Red Blood Cell Count 4.31 M/uL (3.86-4.86); Red Cell Distribution Width 12.9 % (12.1-15.2)
[2024-05-02 20:15] LABS: Albumin 3.5 g/dL (3.4-5.0); Albumin/Globulin Ratio 0.9 (1.1-1.8); Anion Gap 9.4 mEq/L (5.0-15.0); Bilirubin Total 0.3 mg/dL (0.2-1.0); Potassium 4.4 mEq/L (3.5-5.1); Protein, Total 7.5 g/dL (6.4-8.2)
--- NOTE | 2024-05-02 21:20 | RAD REPORT ---
Abdomen Exam Limited: 05/02/2024 9:10 PM CLINICAL HISTORY: ABD PAIN STUDY: Limited right upper quadrant ultrasound of abdomen. COMPARISON: None. FINDINGS: Liver: Within normal limits. Bile ducts: No intrahepatic or extrahepatic biliary ductal dilatation. Common bile duct measures 2 mm. Gallbladder: Normal. IMPRESSION: Unremarkable exam. Specifically, no cholelithiasis or acute cholecystitis.
[2024-05-02 21:24] LABS: Specific Gravity 1.014 (1.005-1.030)
[2024-05-02 21:26] LABS: Specific Gravity 1.014 (1.005-1.030); Urine Bacteria None Seen /HPF (<20); Urine Bilirubin NEGATIVE (Negative); Urine Blood Negative (Negative); Urine Clarity Extremely Turbid (Clear); Urine Color Light-Yellow (Yellow); Urine Culture Reflex Order NOT NEEDED; Urine Glucose NEGATIVE (Negative); Urine Ketones NEGATIVE (Negative); Urine Microscopic Reflex YN ORDER UMIC; Urine Mucus Slight /HPF (None Seen); Urine Nitrite NEGATIVE (Negative); Urine Protein NEGATIVE (Negative); Urine RBC <5 /HPF (None Seen); Urine Urobilinogen Normal (Normal); Urine WBC <5 /HPF (<5); Urine Yeast (Budding) Trace /HPF (None Seen); Urine pH 6.5 (5.0-7.0)
--- NOTE | 2024-05-02 21:57 | RAD REPORT ---
EXAMINATION: CT ABDOMEN AND PELVIS WITH CONTRAST CLINICAL INDICATION: Female, 29 years old.ABD PAIN TECHNIQUE: CT abdomen and pelvis was performed, after the administration of IV contrast, as per depar tment protocol. Axial, sagittal and coronal reconstructions were obtained. One or more of the following dose reduction techniques were used: Automated exposure control, adjustment of the mA and/o r kV according to patient size, and/or iterative reconstruction. Unless otherwise specified, incidental findings do not require dedicated imaging follow-up. [id number]. COMPARISON: 04/24/2015 FINDINGS: LOWER CHEST: No acute process identified.No significant pericardial effusion. UPPER GI: No significant abnormality. LIVER: Hepatic steatosis, but otherwise unremarkable. GALLBLADDER/BILE DUCTS: No biliary ductal dilatation.? PANCREAS: No mass, ductal dilation, or kezia-pancreatic fluid. SPLEEN: Unremarkable. ADRENALS: No adrenal masses. KIDNEYS AND URETERS: No hydronephrosis.No suspicious renal mass. ABDOMINAL AORTA AND OTHER VESSELS: Normal caliber aorta and IVC. PERITONEUM: No abnormal free fluid. No free air. LYMPH NODES: No pathologic lymphadenopathy. ABDOMINAL WALL: Small fat containing umbilical hernia. SMALL BOWEL/COLON: Small bowel has normal course and caliber. No colonic wall thickening or pericolon ic inflammatory changes.Appendix absent. Mild to moderate colonic stool. URINARY BLADDER: Underdistended but grossly unremarkable. REPRODUCTIVE ORGANS: No pathologic process. MUSCULOSKELETAL: No acute or suspicious osseous abnormality. ADDITIONAL FINDINGS: None. IMPRESSION: No acute or significant abnormalities seen in the abdomen or pelvis.
[2024-05-02] MEDS ORDERED: NA CHLORIDE 0.9% 1,000 ML ONE (23:47)
[2024-05-03] MEDS ORDERED: MORPHINE 4 MG/ML SYR ONE (00:11)
[2024-05-03] MEDS ORDERED: CEFTRIAXONE 1000 MG/VIAL ONE (00:27)
[2024-05-03] MEDS ORDERED: DICYCLOMINE HCL 20 MG/2 ML AMP IM ONE (00:38)
--- NOTE | 2024-05-03 00:45 | ER ---
Nurse's Notes [facility] Name: Leena Galvez Age: 29 yrs Sex: Female : 1995 Arrival Date: 05/02/2024 Time: 18:55 Bed 11 Private MD: Diagnosis: UTI/ Urinary tract infection, site not specified-ON LEVOFLOXACIN , 05/02;Abdominal pain, unspecified Presentation: 05/02 19:28 Chief complaint: Patient states: Bilateral flank pain onset 3 days ago. Pt states that cm10 the pain radiates to her abdomen. Pt reports nausea and low-grade fever. Coronavirus screen: Client denies travel out of the [place] in the last 14 days. Ebola Screen: Patient denies travel to an Ebola-affected area in the 21 days before illness onset. No symptoms or risks identified at this time. Initial Sepsis Screen: Does the patient meet any 2 criteria? HR > 90 bpm. Does the patient have a suspected source of infection? No. Patient's initial sepsis screen is negative. Risk Assessment: Do you want to hurt yourself or someone else? Patient reports no desire to harm self or others. Onset of symptoms was April 29, 2024. 19:28 Method Of Arrival: Ambulatory cm10 19:28 Acuity: CIRO 3 cm10 Triage Assessment: 19:30 General: Appears in no apparent distress. comfortable, Behavior is calm, cooperative. cm10 Neuro: No deficits noted. Level of Consciousness is awake, alert, obeys commands, Oriented to person, place, time, situation, Appropriate for age. Respiratory: No deficits noted. Airway is patent Respiratory effort is even, unlabored, Respiratory pattern is regular, symmetrical. Historical: - Allergies: 19:29 arithromycin; cm10 19:29 Aspirin; cm10 19:29 Biaxin; cm10 19:29 Clarithromycin; cm10 19:29 Flagyl; cm10 19:29 Histinex; cm10 19:29 Ondansetron HCl; cm10 19:29 Oxycodone; cm10 19:29 Percocet; cm10 19:29 Prozac; cm10 19:29 Reglan; cm10 19:29 Zithromax; cm10 19:29 Zoloft; cm10 - PMHx: 19:29 Hypothyroidism; cm10 - PSHx: 19:29 Appendectomy; D\T\C; cm10 - Immunization history:: Adult Immunizations up to date. - Infectious Disease History:: Denies. - Social history:: Smoking status: unknown. - Family history:: not pertinent. Screenin/31 01:13 [facility] ED Fall Risk Assessment (Adult) History of falling in the last 3 months, vc1 including since admission No falls in past 3 months (0 pts) Confusion or Disorientation No (0 pts) Intoxicated or Sedated No (0 pts) Impaired Gait No (0 pts) Mobility Assist Device Used No (0 pt) Altered Elimination No (0 pt) Score/Fall Risk Level 0 - 2 = Low Risk Oriented to surroundings, Maintained a safe environment, Educated pt \T\ family on fall prevention, incl call for assistance when getting out of bed. Abuse screen: Denies threats or abuse. Nutritional screening: No deficits noted. Tuberculosis screening: No symptoms or risk factors identified. Assessment: 01:14 Pain: Complains of pain in back and abdomen. GI: Bowel sounds present X 4 quads. Abd is vc1 soft X 4 quads. Vital Signs: 05/02 19:28 BP 113 / 88; Pulse 102; Resp 18; Temp 97.5(TE); Pulse Ox 98% on R/A; Weight 58.97 kg; cm10 Height 4 ft. 11 in. ; Pain 7/10; 19:28 Body Mass Index 26.26 (58.97 kg, 149.86 cm) cm10 19:28 Pain Scale: Adult cm10 ED Course: 18:59 Patient arrived in ED. mr 19:29 Triage completed. cm10 19:30 Arm band placed on left wrist. Patient placed in waiting room. cm10 19:50 Inserted saline lock: 20 gauge in left antecubital area, using aseptic technique. Blood sa1 collected. Flushed with 10 mL NS. 19:50 Initial lab(s) drawn, by me, sent to lab. sa1 19:55 CBC with Diff Sent. sa1 19:55 CMP Sent. sa1 19:55 Lipase Sent. sa1 20:23 Howard Valero MD is Attending Physician. [facility] 21:07 Urine collected: clean catch specimen, clear. sa1 21:13 US Abdomen Limited In Process Unspecified. EDMS 21:13 Radiology exam delayed due to test not completed at this time. nj 21:48 CT Abd/Pelvis - IV Contrast Only In Process Unspecified. EDWA 05/03 01:14 No provider procedures requiring assistance completed. Patient did not have IV access vc1 during this emergency room visit. 01:15 Provided Education on: f/u with pcp. vc1 Administered Medications: 00:07 Drug: NS 0.9% IV 1000 ml IV at 1000 ml once; to be given as a bolus over 60 minutes lg3 Route: IV; Rate: 1000 ml; Site: left antecubital; 00:16 Drug: morphine IVP or IV 4 mg IVP once over 4 mins Route: IVP; Infused Over: 4 mins; lg3 Site: left antecubital; 00:31 Drug: Rocephin IV 1 grams IV at per protocol once; Given slow IV push per pharmacy lg3 instructions Route: IV; Rate: per protocol; Site: left antecubital; 00:42 Drug: Dicyclomine IM 20 mg IM once Route: IM; Site: left gluteus; lg3 Medication: 01:14 VIS not applicable for this client. vc1 Outcome: 00:44 Discharge ordered by MD. bustamante 01:14 Discharged to home via wheelchair, with significant other, vc1 01:14 Condition: good 01:14 Discharge instructions given to patient, Instructed on discharge instructions, follow up and referral plans. medication usage, Demonstrated understanding of instructions, follow-up care, medications, Prescriptions given X 2, 01:15 Patient left the ED. vc1 Signatures: Dispatcher [employer] EDWA Howard Valero MD MD cha Rivera, Mary, Reg Reg Mario Barreto Radha Novak RN RN lg3 Soha Rosado RN RN vc1 Phuong Galvez RN RN 10 Sultan luis Hanna
--- NOTE | 2024-05-03 00:45 | EDPHYS ---
Physician Documentation [facility] Name: Leena Galvez Age: 29 yrs Sex: Female : 1995 Arrival Date: 05/02/2024 Time: 18:55 Bed 11 Private MD: ED Physician Howard Valero HPI: 05/03 00:34 This 29 yrs old Female presents to ER via Ambulatory with complaints of dianna Abdominal Pain, Back Pain. 00:34 This 29 yrs old Female presents to ER via Ambulatory with complaints of dianna Abdominal Pain, Back Pain. 00:34 The patient presents with pain that is acute, with no known mechanism of injury. The dianna symptoms are located in the low back, right mid back. Onset: The symptoms/episode began/occurred 2 day(s) ago. The pain radiates to the right mid back and right low back. Associated signs and symptoms: The patient has no apparent associated signs or symptoms. Severity of symptoms: At their worst the symptoms were mild, in the emergency department the symptoms are unchanged. The patient has not experienced similar symptoms in the past. The patient has been recently seen by a physician: Dr. Parker. Historical: - Allergies: 05/02 19:29 arithromycin; cm10 19:29 Aspirin; cm10 19:29 Biaxin; cm10 19:29 Clarithromycin; cm10 19:29 Flagyl; cm10 19:29 Histinex; cm10 19:29 Ondansetron HCl; cm10 19:29 Oxycodone; cm10 19:29 Percocet; cm10 19:29 Prozac; cm10 19:29 Reglan; cm10 19:29 Zithromax; cm10 19:29 Zoloft; cm10 - PMHx: 19:29 Hypothyroidism; cm10 - PSHx: 19:29 Appendectomy; D\T\C; cm10 - Immunization history:: Adult Immunizations up to date. - Infectious Disease History:: Denies. - Social history:: Smoking status: unknown. - Family history:: not pertinent. ROS: 05/03 00:34 Constitutional: Negative for fever, chills, and weight loss, Eyes: Negative for injury, dianna pain, redness, and discharge, ENT: Negative for injury, pain, and discharge, Neck: Negative for injury, pain, and swelling, Cardiovascular: Negative for chest pain, palpitations, and edema, Respiratory: Negative for shortness of breath, cough, wheezing, and pleuritic chest pain, Abdomen/GI: Negative for abdominal pain, nausea, vomiting, diarrhea, and constipation, : Negative for injury, bleeding, discharge, and swelling, MS/Extremity: Negative for injury and deformity, Skin: Negative for injury, rash, and discoloration, Neuro: Negative for headache, weakness, numbness, tingling, and seizure, Psych: Negative for depression, anxiety, suicide ideation, homicidal ideation, and hallucinations, Allergy/Immunology: Negative for hives, rash, and allergies, Endocrine: Negative for neck swelling, polydipsia, polyuria, polyphagia, and marked weight changes, Hematologic/Lymphatic: Negative for swollen nodes, abnormal bleeding, and unusual bruising, Back: Positive for pain at rest, of the right mid back, Exam: 00:34 Constitutional: This is a well developed, well nourished patient who is awake, alert, dianna and in no acute distress. Head/Face: Normocephalic, atraumatic. Eyes: Pupils equal round and reactive to light, extra-ocular motions intact. Lids and lashes normal. Conjunctiva and sclera are non-icteric and not injected. Cornea within normal limits. Periorbital areas with no swelling, redness, or edema. ENT: Nares patent. No nasal discharge, no septal abnormalities noted. Tympanic membranes are normal and external auditory canals are clear. Oropharynx with no redness, swelling, or masses, exudates, or evidence of obstruction, uvula midline. Mucous membranes moist. Neck: Trachea midline, no thyromegaly or masses palpated, and no cervical lymphadenopathy. Supple, full range of motion without nuchal rigidity, or vertebral point tenderness. No Meningismus. Chest/axilla: Normal chest wall appearance and motion. Nontender with no deformity. No lesions are appreciated. Cardiovascular: Regular rate and rhythm with a normal S1 and S2. No gallops, murmurs, or rubs. Normal PMI, no JVD. No pulse deficits. Respiratory: Lungs have equal breath sounds bilaterally, clear to auscultation and percussion. No rales, rhonchi or wheezes noted. No increased work of breathing, no retractions or nasal flaring. Back: No spinal tenderness. No costovertebral tenderness. Full range of motion. Skin: Warm, dry with normal turgor. Normal color with no rashes, no lesions, and no evidence of cellulitis. MS/ Extremity: Pulses equal, no cyanosis. Neurovascular intact. Full, normal range of motion., bilateral aka Neuro: Awake and alert, GCS 15, oriented to person, place, time, and situation. Cranial nerves II-XII grossly intact. Motor strength 5/5 in all extremities. Sensory grossly intact. Cerebellar exam normal. Normal gait. Psych: Awake, alert, with orientation to person, place and time. Behavior, mood, and affect are within normal limits. 00:34 Abdomen/GI: Inspection: abdomen appears normal, Bowel sounds: normal, Palpation: mild abdominal tenderness, in all quadrants, Liver: no appreciated palpable abnormalities, Hernia: not appreciated, 00:45 Musculoskeletal/extremity: DVT Exam: No signs of deep vein thrombosis. no pain, no dianna swelling, no tenderness, negative Homans' sign noted on exam, no appreciated bluish discoloration, no erythema, no increased warmth, Vital Signs: 05/02 19:28 BP 113 / 88; Pulse 102; Resp 18; Temp 97.5(TE); Pulse Ox 98% on R/A; Weight 58.97 kg; cm10 Height 4 ft. 11 in. ; Pain 7/10; 19:28 Body Mass Index 26.26 (58.97 kg, 149.86 cm) cm10 19:28 Pain Scale: Adult cm10 MDM: 20:23 Medical Screening Exam initiated dianna 05/03 00:39 Differential diagnosis: Hydronephrosis Obesity Peptic Ulcer Pyelonephritis Renal dianna Infarction Ureterolithiasis. Data reviewed: vital signs, nurses notes, lab test result(s), radiologic studies, CT scan, ultrasound. Consideration of Admission/Observation Escalation of care including admission/observation considered. I considered the following discharge prescriptions or medication management in the emergency department Medications were administered in the Emergency Department. See MAR. Independent interpretation of the following test(s) in the Emergency Department CT Scan: My interpretation is CT ABD / PEL. Test considered but Not performed: Ultrasound NO PELVIC USG. MRI: NO MRI. Historians other than the Patient: Spouse/Significant Other: SPOUSE , WELL INFORMED. Care significantly affected by the following chronic conditions: HYPOTHYROID. Counseling: I had a detailed discussion with the patient and/or guardian regarding the historical points, exam findings, and any diagnostic results supporting the discharge/admit diagnosis, lab results, radiology results, the need for outpatient follow up, for definitive care, a family practitioner. 05/02 19:31 Order name: CBC with Diff; Complete Time: 20:24 cm10 05/02 19:31 Order name: CMP; Complete Time: 20:24 cm10 05/02 19:31 Order name: Lipase; Complete Time: 20:24 cm10 05/02 19:31 Order name: Test, Urine; Complete Time: 00:21 cm10 05/02 19:31 Order name: Urinalysis w/ reflexes; Complete Time: 00:21 cm10 05/02 20:26 Order name: US Abdomen Limited; Complete Time: 00:21 dianna 05/02 20:26 Order name: CT Abd/Pelvis - IV Contrast Only; Complete Time: 00:21 dianna 05/02 19:31 Order name: IV Saline Lock; Complete Time: 19:55 cm10 05/02 19:31 Order name: Labs collected and sent; Complete Time: 19:55 cm10 05/02 20:26 Order name: Misc. Order: get ua; Complete Time: 21:29 dianna Administered Medications: 00:07 Drug: NS 0.9% IV 1000 ml IV at 1000 ml once; to be given as a bolus over 60 minutes lg3 Route: IV; Rate: 1000 ml; Site: left antecubital; 00:16 Drug: morphine IVP or IV 4 mg IVP once over 4 mins Route: IVP; Infused Over: 4 mins; lg3 Site: left antecubital; 00:31 Drug: Rocephin IV 1 grams IV at per protocol once; Given slow IV push per pharmacy lg3 instructions Route: IV; Rate: per protocol; Site: left antecubital; 00:42 Drug: Dicyclomine IM 20 mg IM once Route: IM; Site: left gluteus; lg3 Disposition Summary: 05/03/24 00:44 Discharge Ordered Notes: Location: Home dianna Problem: new dianna Symptoms: have improved dianna Condition: Stable dianna Diagnosis - UTI/ Urinary tract infection, site not specified - ON LEVOFLOXACIN , 05/02 dianna - Abdominal pain, unspecified dianna Followup: dianna - With: Private Physician - When: 2 - 3 days - Reason: Recheck today's complaints, Continuance of care, Re-evaluation by your physician Discharge Instructions: - Discharge Summary Sheet dianna - Abdominal Pain, Adult dianna - Urinary Tract Infection, Adult dianna - Urinary Tract Infection, Adult, [id number] dianna Forms: - Medication Reconciliation Form dianna - Antibiotic Education dianna - Prescription Opioid Use dianna - Patient Portal Instructions dianna - Leadership Thank You Letter dianna - Work release form vc1 Prescriptions: - dicyclomine 20 mg Oral tablet - take 1 tablet ORAL route 4 times per day; 28 tablet; Refills: 0, Product dianna Selection Permitted Signatures: Dispatcher [employer] EDHoward Baumann MD MD cha Able, Lacie, RN RN lg3 Phuong Galvez RN RN cm10
[2024-05-03 08:47] VITALS: BP 113/88; TEMP 97.5; O2SAT 98
== END 2024-05-03 01:15 | disposition home or self-care (01) ==
LOC: ER 18:55
DX: N39.0 Urinary tract infection, site not specified (principal)
CPT/HCPCS: 85025; 81001; 36415; 81025; 83690; 80053; 74177; 76705; 96375; 96372; 96374; 99284; Q9967; J0500; J7030; J0696

== ENCOUNTER 2024-09-08 19:03 | Emergency (ER) | payer BC ==
--- NOTE | 2024-09-08 21:08 | RAD REPORT ---
EXAMINATION: XR Tib Fib Left CLINICAL INDICATION: Female, 29 years old. laceration, pain TECHNIQUE: 2 view radiograph of the left tibia and fibula were obtained. COMPARISON: No prior exam. FINDINGS: No evidence of fracture or dislocation. Normal alignment. No evidence of arthropathy or oth er focal bone lesion. Soft tissue swelling and irregularity along the lateral mid aspect of the lower leg. IMPRESSION: No acute osseous abnormalities. Soft tissue abnormalities as above
[2024-09-08] MEDS ORDERED: LIDOCAINE 1% 20 ML MDV ONE (22:09)
[2024-09-08] MEDS ORDERED: FENTANYL CITR 100 MCG/2 ML ONE (22:09)
[2024-09-08] MEDS ORDERED: PROMETHAZINE 25 MG TABLET ONE (23:23)
[2024-09-08] MEDS ORDERED: DIAZEPAM 5 MG TABLET ONE (23:24)
--- NOTE | 2024-09-09 00:21 | EDPHYS ---
Physician Documentation [facility] Name: Leena Galvez Age: 29 yrs Sex: Female : 1995 Arrival Date: 09/08/2024 Time: 19:03 Bed 10 Private MD: ED Physician [place] HPI: 09/09 00:56 This 29 yrs old Female presents to ER via Wheelchair with complaints of Fall Injury, sb4 Laceration To Leg. 00:56 The patient has a laceration related to: working, occurred at work, and there are no sb4 complicating factors. The injury was accidental. The laceration(s) is(are) located on the left pereyra. Onset: The symptoms/episode began/occurred just prior to arrival. Associated signs and symptoms: The patient has no apparent associated signs or symptoms. The patient has not experienced similar symptoms in the past. The patient has not recently seen a physician. Historical: - Allergies: 09/08 19:15 arithromycin; cm10 19:15 Aspirin; cm10 19:15 Biaxin; cm10 19:15 Clarithromycin; cm10 19:15 Flagyl; cm10 19:15 Histinex; cm10 19:15 Ondansetron HCl; cm10 19:15 Oxycodone; cm10 19:15 Percocet; cm10 19:15 Prozac; cm10 19:15 Reglan; cm10 19:15 Zithromax; cm10 19:15 Zoloft; cm10 - PMHx: 19:15 Hypothyroidism; cm10 - PSHx: 19:15 Appendectomy; D\T\C; cm10 - Immunization history:: Adult Immunizations up to date. - Infectious Disease History:: Denies. - Social history:: Smoking status: unknown. ROS: 09/09 00:56 Constitutional: Negative for fever, chills, and weight loss, sb4 MS/extremity: Positive for pain, of the left foot, Skin: Positive for laceration(s), of the left pereyra, All other systems are negative, Exam: 00:56 Constitutional: This is a well developed, well nourished patient who is awake, alert, sb4 and in no acute distress. Head/Face: Normocephalic, atraumatic. Eyes: Extra-ocular motions intact. Periorbital areas with no swelling, redness, or edema. ENT: Mucous membranes moist. Respiratory: No increased work of breathing, no retractions or nasal flaring. 00:56 Skin: injury, laceration(s), the wound is approximately 4 cm(s), with a depth of .5 cm(s), of the left pereyra, that can be described as clean, no foreign body, linear, with mild bleeding, gaping, Vital Signs: 09/08 19:14 BP 112 / 75; Pulse 136; Resp 18; Temp 98.9(O); Pulse Ox 94% on R/A; Weight 61.69 kg; cm10 Height 4 ft. 11 in. ; Pain 10/10; 23:55 BP 121 / 83; Pulse 106; Resp 16; Pulse Ox 98% on R/A; jb4 19:14 Body Mass Index 27.47 (61.69 kg, 149.86 cm) cm10 19:14 Pain Scale: Adult cm10 Laceration: 09/09 00:56 Wound Repair of 4cm ( 1.6in ) subcutaneous laceration to left pereyra. Distal sb4 neuro/vascular/tendon intact. Anesthesia: Local anesthetic administered with 10 mls of 1% lidocaine. Wound prep: Simple cleansing with hibiclenz by me, Wound irrigation with saline by me, Copious irrigation. Skin closed with 7 4-0 Prolene using simple sutures and sterile technique. Dressed with non-adherent dressing. Patient tolerated well. MDM: 09/08 19:11 Medical Screening Exam initiated sb4 09/09 00:56 Differential diagnosis: superficial laceration, fracture, contusion. Data reviewed: 4 vital signs, nurses notes, radiologic studies, and as a result, I will discharge patient. Counseling: I had a detailed discussion with the patient and/or guardian regarding the historical points, exam findings, and any diagnostic results supporting the discharge/admit diagnosis, radiology results, the need for outpatient follow up, for suture removal in 7 days, to return to the emergency department if symptoms worsen or persist or if there are any questions or concerns that arise at home. 09/08 19:20 Order name: Tib Fib Left XRAY; Complete Time: 21:10 sb4 09/08 22:51 Order name: XRAY Foot LEFT 3 View 4 09/08 19:21 Order name: Suture Tray Setup; Complete Time: 22:31 sb4 Administered Medications: 09/08 22:31 Drug: fentaNYL (PF) IM 50 mcg IM once Route: IM; Site: right deltoid; [facility] 09/09 00:36 Follow up: Response: No adverse reaction; Marked relief of symptoms; Pain is decreased [facility] 09/08 23:29 Drug: Diazepam PO 5 mg PO once Route: PO; 4 09/09 00:36 Follow up: Response: No adverse reaction; Marked relief of symptoms [facility] 09/08 23:29 Drug: Promethazine PO 25 mg PO once Route: PO; [facility] 09/09 00:36 Follow up: Response: No adverse reaction; Marked relief of symptoms [facility] 09/08 23:49 Not Given (Physician Discretion): lidocaine(1 %) 20 ml 20 ml Infiltration once; to sb4 bedside Disposition Summary: 09/09/24 00:21 Discharge Ordered Notes: Location: Home sb4 Problem: new sb4 Symptoms: have improved sb4 Condition: Stable sb4 Diagnosis - Laceration without foreign body of lower leg sb4 Followup: sb4 - With: Private Physician - When: 1 week - Reason: Staple/Suture removal Discharge Instructions: - Discharge Summary Sheet sb4 - Laceration Care, Adult, [id number] sb4 - Foot Contusion, [id number]-[id number] sb4 Forms: - Patient Portal Instructions sb4 - Leadership Thank You Letter sb4 Prescriptions: - Ibuprofen 800 mg Oral Tablet - take 1 tablet ORAL route every 8 hours As needed take with food; 30 tablet; sb4 Refills: 0, Product Selection Permitted - Tramadol 50 mg Oral Tablet - take 1 tablet ORAL route every 8 hours as needed; 12 tablet; Refills: 0, sb4 Product Selection Permitted Signatures: Dispatcher [employer] Stephan López RN RN jb4 Yamila Pantoja PA-C PAPhuong Barber RN RN cm10 Corrections: (The following items were deleted from the chart) 19:21 19:21 Tib Fib Left+RAD.RAD.BRZ ordered. EDFL EDMS
--- NOTE | 2024-09-09 00:21 | ER ---
Nurse's Notes [facility] Name: Leena Galvez Age: 29 yrs Sex: Female : 1995 Arrival Date: 09/08/2024 Time: 19:03 Bed 10 Private MD: Diagnosis: Laceration without foreign body of lower leg Presentation: 09/08 19:14 Chief complaint: Patient states: Fell and cut her leg on an old mannequin stand. Pt cm10 noted to have puncture wound to left lower leg. Coronavirus screen: Client denies travel out of the [place] in the last 14 days. Ebola Screen: Patient denies travel to an Ebola-affected area in the 21 days before illness onset. Initial Sepsis Screen: Does the patient meet any 2 criteria? HR > 90 bpm. Does the patient have a suspected source of infection? No. Patient's initial sepsis screen is negative. Risk Assessment: Do you want to hurt yourself or someone else? Patient reports no desire to harm self or others. Onset of symptoms was September 08, 2024. 19:14 Method Of Arrival: Wheelchair cm10 19:14 Acuity: CIRO 4 cm10 Triage Assessment: 19:21 General: Appears uncomfortable, Behavior is crying. Neuro: No deficits noted. Level of cm10 Consciousness is awake, alert, obeys commands, Oriented to person, place, time, situation, Appropriate for age. Respiratory: No deficits noted. Airway is patent Respiratory effort is even, unlabored, Respiratory pattern is regular, symmetrical. Historical: - Allergies: 19:15 arithromycin; cm10 19:15 Aspirin; cm10 19:15 Biaxin; cm10 19:15 Clarithromycin; cm10 19:15 Flagyl; cm10 19:15 Histinex; cm10 19:15 Ondansetron HCl; cm10 19:15 Oxycodone; cm10 19:15 Percocet; cm10 19:15 Prozac; cm10 19:15 Reglan; cm10 19:15 Zithromax; cm10 19:15 Zoloft; cm10 - PMHx: 19:15 Hypothyroidism; cm10 - PSHx: 19:15 Appendectomy; D\T\C; cm10 - Immunization history:: Adult Immunizations up to date. - Infectious Disease History:: Denies. - Social history:: Smoking status: unknown. Screenin/09 00:34 [facility] ED Fall Risk Assessment (Adult) History of falling in the last 3 months, jb4 including since admission Yes- single mechanical fall (1 pt) Confusion or Disorientation No (0 pts) Intoxicated or Sedated No (0 pts) Impaired Gait No (0 pts) Mobility Assist Device Used No (0 pt) Altered Elimination No (0 pt) Score/Fall Risk Level 0 - 2 = Low Risk Oriented to surroundings, Maintained a safe environment. Abuse screen: Denies threats or abuse. Nutritional screening: No deficits noted. Tuberculosis screening: No symptoms or risk factors identified. Assessment: 09/08 23:52 Reassessment: Patient appears in no apparent distress at this time. Patient and/or jb4 family updated on plan of care and expected duration. Pain level reassessed. Patient is alert, oriented x 3, equal unlabored respirations, skin warm/dry/pink. 09/09 00:34 Reassessment: Patient appears in no apparent distress at this time. Patient and/or jb4 family updated on plan of care and expected duration. Pain level reassessed. Patient is alert, oriented x 3, equal unlabored respirations, skin warm/dry/pink. Vital Signs: 09/08 19:14 BP 112 / 75; Pulse 136; Resp 18; Temp 98.9(O); Pulse Ox 94% on R/A; Weight 61.69 kg; cm10 Height 4 ft. 11 in. ; Pain 10/10; 23:55 BP 121 / 83; Pulse 106; Resp 16; Pulse Ox 98% on R/A; jb4 19:14 Body Mass Index 27.47 (61.69 kg, 149.86 cm) cm10 19:14 Pain Scale: Adult cm10 ED Course: 19:04 Patient arrived in ED. mr 19:06 Yamila Pantoja PA-C is PHCP. sb4 19:07 [place] MD is Attending Physician. sb4 19:15 Triage completed. cm10 19:21 Arm band placed on right wrist. Patient placed in waiting room. cm10 20:25 Tib Fib Left XRAY In Process Unspecified. EDMS 23:43 Stephan Cullen, RN is Primary Nurse. jb4 09/09 00:00 XRAY Foot LEFT 3 View In Process Unspecified. EDMS 00:34 Patient has correct armband on for positive identification. Bed in low position. Call jb4 light in reach. Side rails up X 1. Provided Education on: discharge instructions.. 00:34 No provider procedures requiring assistance completed. Patient did not have IV access jb4 during this emergency room visit. Administered Medications: 09/08 22:31 Drug: fentaNYL (PF) IM 50 mcg IM once Route: IM; Site: right deltoid; jb4 09/09 00:36 Follow up: Response: No adverse reaction; Marked relief of symptoms; Pain is decreased jb4 09/08 23:29 Drug: Diazepam PO 5 mg PO once Route: PO; jb4 09/09 00:36 Follow up: Response: No adverse reaction; Marked relief of symptoms jb4 09/08 23:29 Drug: Promethazine PO 25 mg PO once Route: PO; jb4 09/09 00:36 Follow up: Response: No adverse reaction; Marked relief of symptoms 4 09/08 23:49 Not Given (Physician Discretion): lidocaine(1 %) 20 ml 20 ml Infiltration once; to sb4 bedside Medication: 09/09 00:34 VIS not applicable for this client. jb4 Outcome: 00:21 Discharge ordered by MD. sb4 00:34 Discharged to home via wheelchair, with family, jb4 00:34 Condition: stable 00:34 Discharge instructions given to patient, Instructed on discharge instructions, follow up and referral plans. no drinking with medication, no driving heavy equipment, medication usage, Demonstrated understanding of instructions, follow-up care, medications, Prescriptions given X 2, 00:36 Patient left the ED. jb4 Signatures: Dispatcher [employer] [facility] Bella Brooks, Reg Reg Stephan Zuluaga, RN RN [email or web address] Yamila Pantoja, PA-C PA-C Phuong Lanza, RN RN cm10
[2024-09-09 00:57] VITALS: TEMP 98.9
[2024-09-09 00:59] VITALS: BP 121/83; O2SAT 98
--- NOTE | 2024-09-09 05:32 | RAD REPORT ---
CLINICAL HISTORY: Pain. COMPARISON: None. TECHNIQUE: XR FOOT 3 OR MORE VIEWS LEFT 09/08/2024 10:51 PM CDT FINDINGS: There is no fracture. Joint spaces are preserved. Soft tissues are unremarkable. IMPRESSION: No acute osseous findings. Electronically signed by: Jamison Lu MD 09/09/2024 12:25 AM CDT Due to temporary technical issues with the PACS/Digital [employer] reporting system, reports are being ameya d by the in-house radiologist without review as a courtesy to ensure prompt reporting the interpreting radiologist is fully responsible for the content of the report. Transcribed Date/Time: 09/09/2024 5:32 AM
== END 2024-09-09 00:36 | disposition home or self-care (01) ==
LOC: ER 19:03
DX: S81.812A Laceration without foreign body, left lower leg, initial encounter (principal); W26.8XXA Contact with other sharp object(s), not elsewhere classified, initial encounter; Y99.0 Civilian activity done for income or pay
CPT/HCPCS: 73630; 73590; 96372; 99284; 12032; Q0169; J3010; J2003